=== PATIENT | male | born 1945 | race Caucasian/White ===

== ENCOUNTER 2017-04-01 16:13 | Inpatient (IN) ==
[2017-04-01] MEDS ORDERED: Ipratropium/Albuterol Neb 3 ML IH PRN (22:51)
[2017-04-01] MEDS ORDERED: Naloxone 0.4 MG/ML INJ IVP PRN (22:51)
--- NOTE | 2017-04-01 22:56 | Internal Med History&Physical ---
Date of Encounter: 04/01/17 Time of Encounter: 23:02 Assessment and Plan (1) COPD (chronic obstructive pulmonary disease) Current visit: No Status: Acute Duonebs, IV steroids prn cpap as necessary pulse ox close monitoring Qualifiers: COPD type: COPD with acute exacerbation Qualified Code(s): J44.1 - Chronic obstructive pulmonary disease with (acute) exacerbation (2) Left lower lobe pneumonia Current visit: No Status: Acute Add levaquin IV send pneumococcal serologies IVF Qualifiers: Pneumonia type: due to unspecified organism Qualified Code(s): J18.1 - Lobar pneumonia, unspecified organism (3) Renal insufficiency Current visit: No Status: Acute trend Cr (4) Sleep apnea Current visit: No Status: Chronic CPAP qHS Qualifiers: Sleep apnea type: central sleep apnea associated with underlying condition Qualified Code(s): G47.37 - Central sleep apnea in conditions classified elsewhere (5) Elevated troponin Current visit: Yes Status: Acute trend trop , mildly elevated in the ED 0.02 Internal Medicine - H&P: HPI History of present illness: Mr. Andrews is a 71 year old male with hx of COPD, current 1/2 PPD smoker who presents with 1 week hx of progressive SOB, RIOS. Found to be hypoxic in the ED. He presented with 1 week hx of worsening SOB. At baseline, he uses CPAP and 2 L oxygen in the evening/at rest. Otherwise is ambulatory off oxygen. Developed progressive SOB and RIOS up to 1 block distance. Associated with some mild cough that is intermittently productive of white sputum. Subjective fever/ chills also of 1 week. Symptoms did not improve with time. He denies any chest pain or equivalent symptoms. Admits to continuous smoking 1/2 PPD EKG personally reviewed with rate 86, RBBB. No prior EKG to compare to XR/XR chest 1V portable IMPRESSION: Left basilar infiltrate compatible with pneumonia Past Med Surg Social Fam HX - Past Medical History Medical history: aortic aneurysm, arthritis, asthma, cancer, COPD, coronary artery disease, GERD, hyperlipidemia, hypertension, malignancy, myocardial infarction, renal disease, TIA, other Psychiatric history: anxiety, depression - Past Surgical History Surgical History: orthopedic, other, other - Social History Smoking Status: Current every day smoker Smokeless Tobacco Status: No Alcohol use: none Drug use: none - Family History Father Adopted: Yes Family Member Ethnicity: Non- Living Status: Hx Family Cardiac Disorders: Yes (self, brother,mother) Hx Family Respiratory Disorders: Yes (self, father) Hx Family Cancer: Yes (self,father,brother) Hx Family GI Disorders: Yes (self) Hx Family Endocrine Disorder: No Hx Family Neuromuscular Disorders: No Hx Family Neurologic Disorders: Yes (self,mother) Hx Family HEENT Disorders: No Hx Family Autoimmune Disorders: No Internal Medicine - H&P: Meds Albuterol Sulfate [Albuterol Inhaler] 2 puff IH Q4HR PRN 01/13/15 [History] Esomeprazole Magnesium [Nexium] 40 mg PO DAILY 01/13/15 [History] Hydrocodone/Acetaminophen [[place] 7.5-325 Tablet] 1 tab PO TID PRN 01/13/15 [ History] Simvastatin [Zocor] 40 mg PO HS 01/13/15 [History] Tiotropium [Spiriva] 18 mcg IH DAILY 01/13/15 [History] Carvedilol [Coreg] 6.25 mg PO BIDWM 05/28/15 [History] Fluticasone/Salmeterol [Advair 250-50 Diskus] 2 puff IN DAILY 05/28/15 [History] BuPROPion SR (12 HR) [Wellbutrin SR] 100 mg PO BID 07/29/15 [History] Citalopram Hydrobromide [Celexa] 40 mg PO DAILY 07/29/15 [History] Tamsulosin [Flomax] 0.4 mg PO DAILY 07/29/15 [History] Tizanidine HCl [Zanaflex] 4 mg PO DAILY 07/29/15 [History] Cetirizine HCl [All Day Allergy] 10 mg PO DAILY 02/17/16 [History] Guaifenesin [Mucinex] 600 mg PO BID 02/17/16 [History] Ipratropium/Albuterol Neb [Duoneb] 3 ml IH Q6HR 02/17/16 [History] Losartan/Hydrochlorothiazide [Hyzaar 100-12.5 Tablet] 1 each PO DAILY 02/17/16 [ History] Montelukast [Singulair] 10 mg PO DAILY 02/17/16 [History] Tizanidine HCl 2 mg PO HS 02/17/16 [History] Gabapentin [Neurontin] 300 mg PO QID 10/11/16 [History] PredniSONE [Deltasone] 40 mg PO DAILY #8 tablet 02/14/17 [Rx] 3 Allergy/AdvReac Type Severity Reaction Status Date / Time morphine Allergy Anaphylaxis Verified 02/14/17 16:44 All Systems PM: A 10-system review of systems was performed and is negative for pertinent findings except as documented above in the HPI. Review of systems: ROS 14 point review of systems reviewed as best as possible given presentation. Pertinent positive or negative as per HPI or otherwise reviewed as negative - Constitutional Vitals: Temp Pulse Resp BP Pulse Ox 97.8 F 69 20 108/73 100 04/01/17 21:00 04/01/17 21:00 04/01/17 21:00 04/01/17 21:00 04/01/17 21:00 Exam: General - AAO x 3 Psych - Appropriate affect/speech. No agitation Eyes - KOMAL. Eye lids intact. No scleral icterus Neuro - No gross peripheral or central neuro deficits on inspection Heart - Sinus. RRR. S1 and S2 present. No added HS/murmurs appreciated. No elevated JVD appreciated. Lung - Decreased air entry b/l, bibasal crackles, right upper zone wheezes appreciated GI - Soft, non-tender. No hepatosplenomegaly/ascites. BS+ - No CVA/suprapubic tenderness or palpable bladder distension
[2017-04-01] MEDS: 0.9 % Sodium Chloride 1,000 ML IVC SCH (23:15)
[2017-04-01] MEDS: MethylPREDNISolone 40 MG/ML VIAL IVP SCH (23:16)
[2017-04-01] MEDS: Levofloxacin 500 MG/100 ML 500 MG/100 ML BAG IVPB SCH (23:16)
[2017-04-02] MEDS: Ipratropium/Albuterol Neb 3 ML IH SCH ×4 (05:13→23:39)
[2017-04-02 05:20] LABS: Hematocrit 33.3 % (37.5-50.1); Hemoglobin 10.7 g/dL (12.9-16.9); Immature Granulocytes % 0.9 % (0-4); Lymphocytes # 0.3 K/mcL (0.6-4.6); Lymphocytes % 4.8 %; Mean Corpuscular HGB Conc 32.1 g/dL (31.6-35.5); Mean Corpuscular Hemoglobin 30.7 pg (28.0-33.3); Mean Corpuscular Volume 95.4 fL (83.0-100.0); Mean Platelet Volume 10.3 fL (9.4-12.4); Monocytes # 0.3 K/mcL (0.0-1.3); Monocytes % 3.7 %; Platelet Count 146 K/mcL (140-400); Red Blood Count 3.49 M/mcL (4.19-5.50); Red Cell Distribution Width 13.8 % (11.5-14.5); Segmented Neutrophils % 90.6 %
[2017-04-02 05:35] LABS: BUN/Creatinine Ratio 25 (6-26); Blood Urea Nitrogen 27 mg/dL (8-23); Calcium 8.5 mg/dL (8.6-10.3); Carbon Dioxide 28 mEq/L (23-29); Chloride 106 mEq/L (98-107); Glucose 169 mg/dL (70-105); Magnesium 1.5 mg/dL (1.6-2.6); Osmolality,Calculated 297 (280-300); Potassium 3.8 mEq/L (3.5-5.1); Sodium 139 mEq/L (136-145); eGFR For African Americans > 60 (> 60); eGFR For Non-African Americans > 60 (> 60)
[2017-04-02] MEDS: *HR* Enoxaparin 30 MG/0.3 ML SYRINGE SQ SCH (06:05)
[2017-04-02] MEDS: MethylPREDNISolone 40 MG/ML VIAL IVP SCH ×2 (06:05→18:02)
[2017-04-02] MEDS: BuPROPion SR (12 HR) 100 MG TABLET PO SCH ×2 (07:43→20:30)
[2017-04-02] MEDS: Gabapentin 300 MG CAPSULE PO SCH ×4 (07:44→20:30)
[2017-04-02] MEDS: Nicotine 14 MG PATCH.TD24 TD SCH (07:44)
[2017-04-02] MEDS: tiZANidine 4 MG TABLET PO SCH ×2 (07:45→20:27)
[2017-04-02] MEDS: Loratadine 10 MG TABLET PO SCH (07:48)
[2017-04-02] MEDS ORDERED: Losartan/HCTZ 50-12.5 TABLET PO SCH (09:00)
[2017-04-02] MEDS: 0.9 % Sodium Chloride 1,000 ML IVC SCH (09:41)
[2017-04-02] MEDS: Budesonide/Formoterol 80/4.5 MDI IH SCH (11:04)
[2017-04-02] MEDS: Tiotropium 18 MCG inhalation IH SCH (11:06)
--- NOTE | 2017-04-02 11:44 | Internal Med Progress Note ---
Date of Encounter: 04/02/17 Time of Encounter: 11:41 - Assessment and plan (1) Acute and chronic respiratory failure with hypoxia Current Visit: Yes Status: Acute Assessment and plan: Triggered by Pneumonia cont IV steroids + Duoneb + empirical abx will try to wean him off the O2 as he tolerated he does use 2 lit o2 at QHS d/c IVF Will sent for resp viral panel His influenza A & B are negative (2) COPD exacerbation Current Visit: Yes Status: Acute (3) Pneumonia Current Visit: No Status: Acute Assessment and plan: reviewed CXR showed LLL PNA mostly bacterial cont empirical abx Levaquin Qualifiers: Pneumonia type: due to unspecified organism Laterality: bilateral Lung location: lower lobe of lung Qualified Code(s): J18.9 - Pneumonia, unspecified organism (4) Tobacco use Current Visit: No Status: Chronic Assessment and plan: counseled to quit on nicotine patch (5) Hypertension Current Visit: No Status: Chronic Assessment and plan: stable with current regimen Qualifiers: Hypertension type: essential hypertension Qualified Code(s): I10 - Essential (primary) hypertension (6) Sleep apnea Current Visit: No Status: Chronic Assessment and plan: he is going to use his own CPAP from home Qualifiers: Sleep apnea type: central sleep apnea associated with underlying condition Qualified Code(s): G47.37 - Central sleep apnea in conditions classified elsewhere (7) Renal insufficiency Current Visit: No Status: Acute Assessment and plan: due to dehydration Improved - Subjective Interval history: Mr. Andrews is a 71 year old male with hx of COPD, current 1/2 PPD smoker who presents with 1 week hx of progressive SOB, RIOS. Found to be hypoxic in the ED. He presented with 1 week hx of worsening SOB. At baseline, he uses CPAP and 2 L oxygen in the evening/at rest. Developed progressive SOB and RIOS up to 1 block distance. Associated with some mild cough that is intermittently productive of white sputum. Subjective fever/chills also of 1 week. He stated he is feeling little better this morning. Still has moderate SOB and RIOS. Still on 2 lit O2 - Constitutional Vitals: Temp Pulse Resp BP Pulse Ox 97.2 F L 55 17 132/75 94 04/02/17 08:23 04/02/17 08:23 04/02/17 11:04 04/02/17 08:23 04/02/17 11:04 General appearance: Present: A&O X 3, no acute distress, answers questions appropriately - Head Head exam: Present: atraumatic, normal inspection - Respiratory Respiratory exam: Present: decreased breath sounds, rhonchi (++), wheezes ( moderate to severe). Absent: rales, respiratory distress - Cardiovascular Cardiovascular exam: Present: RRR, +S1, +S2. Absent: tachycardia - GI/Abdominal GI/Abdominal exam: Present: normal bowel sounds, soft. Absent: rebound, rigid, tenderness - Extremities Exam Extremities exam: Absent: calf tenderness, pedal edema, tenderness - Back Exam Back exam: Absent: CVA tenderness (L), CVA tenderness (R) - Neurological Exam Neurological exam: Present: alert, oriented X3 Internal Medicine: Result - Labs CBC & Chem 7: 04/02/17 05:10 04/02/17 05:10 Labs: Short CBC 04/02/17 Range/Units 05:10 WBC 6.7 (4.3-11.1) K/mcL Hgb 10.7 L D (12.9-16.9) g/dL Hct 33.3 L (37.5-50.1) % Plt Count 146 (140-400) K/mcL Neutrophils # 6.0 (1.6-8.9) K/mcL BMP 04/02/17 05:10 Sodium 139 Potassium 3.8 Chloride 106 Carbon Dioxide 28 BUN 27 H Creatinine 1.07 Glucose 169 H Calcium 8.5 L Cardiac Enzymes 04/01/17 04/02/17 Range/Units 23:12 05:10 Troponin I < 0.03 < 0.03 (< 0.04) ng/mL Consult Discharge Plan - Plan Referrals: Naresh Trotter MD [Primary Care Provider] -
[2017-04-02 13:56] LABS: Adenovirus Not Detected (Not Detect); Bordetella Pertussis Not Detected (Not Detect); Chlamydophila pneumoniae Not Detected (Not Detect); Coronavirus 229E Not Detected (Not Detect); Coronavirus HKU1 Not Detected (Not Detect); Coronavirus NL63 Not Detected (Not Detect); Coronavirus OC43 Not Detected (Not Detect); Human Metapneumovirus Not Detected (Not Detect); Human Rhinovirus/Enterovirus Not Detected (Not Detect); Influenza A Subtype 2009 H1 Not Detected (Not Detect); Influenza A Untypeable Not Detected (Not Detect); Influenza B Not Detected (Not Detect); Mycoplasma pneumoniae Not Detected (Not Detect); Parainfluenza Virus 1 Not Detected (Not Detect); Parainfluenza Virus 2 Not Detected (Not Detect); Parainfluenza Virus 3 Not Detected (Not Detect); Parainfluenza Virus 4 Not Detected (Not Detect); Respiratory Syncytial Virus Not Detected (Not Detect)
[2017-04-03] MEDS: Levofloxacin 500 MG/100 ML 500 MG/100 ML BAG IVPB SCH (01:53)
[2017-04-03] MEDS: MethylPREDNISolone 40 MG/ML VIAL IVP SCH ×4 (01:53→21:40)
[2017-04-03 04:36] LABS: Basophils % 0.1 %; Hematocrit 31.4 % (37.5-50.1); Hemoglobin 10.3 g/dL (12.9-16.9); Immature Granulocytes % 1.1 % (0-4); Lymphocytes # 0.5 K/mcL (0.6-4.6); Lymphocytes % 4.4 %; Mean Corpuscular HGB Conc 32.8 g/dL (31.6-35.5); Mean Corpuscular Volume 94.6 fL (83.0-100.0); Mean Platelet Volume 10.6 fL (9.4-12.4); Monocytes # 0.5 K/mcL (0.0-1.3); Monocytes % 4.2 %; Neutrophils # 10.1 K/mcL (1.6-8.9); Platelet Count 190 K/mcL (140-400); Red Blood Count 3.32 M/mcL (4.19-5.50); Red Cell Distribution Width 13.8 % (11.5-14.5); Segmented Neutrophils % 90.2 %
[2017-04-03] MEDS: *HR* Enoxaparin 30 MG/0.3 ML SYRINGE SQ SCH (04:50)
[2017-04-03 04:52] LABS: BUN/Creatinine Ratio 32 (6-26); Blood Urea Nitrogen 30 mg/dL (8-23); Calcium 8.7 mg/dL (8.6-10.3); Carbon Dioxide 27 mEq/L (23-29); Chloride 107 mEq/L (98-107); Glucose 142 mg/dL (70-105); Osmolality,Calculated 299 (280-300); Potassium 3.5 mEq/L (3.5-5.1); Sodium 140 mEq/L (136-145); eGFR For African Americans > 60 (> 60); eGFR For Non-African Americans > 60 (> 60)
[2017-04-03] MEDS: Ipratropium/Albuterol Neb 3 ML IH SCH ×4 (05:11→22:04)
[2017-04-03] MEDS: Nicotine 14 MG PATCH.TD24 TD SCH (07:48)
[2017-04-03] MEDS: BuPROPion SR (12 HR) 100 MG TABLET PO SCH ×2 (07:49→21:48)
[2017-04-03] MEDS: Loratadine 10 MG TABLET PO SCH (07:49)
[2017-04-03] MEDS: tiZANidine 4 MG TABLET PO SCH ×2 (07:49→21:47)
[2017-04-03] MEDS: Gabapentin 300 MG CAPSULE PO SCH ×4 (07:49→21:48)
[2017-04-03] MEDS: Tiotropium 18 MCG inhalation IH SCH (11:04)
[2017-04-03] MEDS: Budesonide/Formoterol 80/4.5 MDI IH SCH (11:05)
--- NOTE | 2017-04-03 17:49 | Internal Med Progress Note ---
Date of Encounter: 04/03/17 Time of Encounter: 17:00 - Assessment and plan (1) Acute and chronic respiratory failure with hypoxia Current Visit: Yes Status: Acute Assessment and plan: Triggered by Pneumonia cont tapering IV steroids + Duoneb + empirical abx will try to wean him off the O2 as he tolerated he does use 2 lit o2 at QHS Reviewed resp viral panel - negative His influenza A & B are negative (2) COPD exacerbation Current Visit: Yes Status: Acute Assessment and plan: improving start tapering steroids (3) Pneumonia Current Visit: No Status: Acute Assessment and plan: reviewed CXR showed LLL PNA mostly bacterial cont empirical abx Levaquin Qualifiers: Pneumonia type: due to unspecified organism Laterality: bilateral Lung location: lower lobe of lung Qualified Code(s): J18.9 - Pneumonia, unspecified organism (4) Tobacco use Current Visit: No Status: Chronic Assessment and plan: counseled to quit on nicotine patch (5) Hypertension Current Visit: No Status: Chronic Assessment and plan: stable with current regimen Qualifiers: Hypertension type: essential hypertension Qualified Code(s): I10 - Essential (primary) hypertension (6) Sleep apnea Current Visit: No Status: Chronic Assessment and plan: he is going to use his own CPAP from home Qualifiers: Sleep apnea type: central sleep apnea associated with underlying condition Qualified Code(s): G47.37 - Central sleep apnea in conditions classified elsewhere (7) Renal insufficiency Current Visit: No Status: Acute Assessment and plan: due to dehydration Improved - Subjective Interval history: Mr. Andrews is a 71 year old male with hx of COPD, current 1/2 PPD smoker who presents with 1 week hx of progressive SOB, RIOS. Found to be hypoxic in the ED. He presented with 1 week hx of worsening SOB. At baseline, he uses CPAP and 2 L oxygen in the evening/at rest. Developed progressive SOB and RIOS up to 1 block distance. Associated with some mild cough that is intermittently productive of white sputum. Subjective fever/chills also of 1 week. He stated he is feeling much better today. Still has moderate RIOS. Required Oxygen with ambulation - Constitutional Vitals: Temp Pulse Resp BP Pulse Ox 98.1 F 73 18 132/76 95 04/03/17 16:00 04/03/17 16:00 04/03/17 16:17 04/03/17 16:00 04/03/17 16:17 General appearance: Present: A&O X 3, no acute distress, answers questions appropriately - Head Head exam: Present: atraumatic, normal inspection - Neck Neck exam general surgery: Present: supple - Respiratory Respiratory exam: Present: decreased breath sounds, wheezes (Moderate). Absent : rales, respiratory distress, rhonchi - Cardiovascular Cardiovascular exam: Present: RRR, +S1, +S2. Absent: tachycardia - GI/Abdominal GI/Abdominal exam: Present: normal bowel sounds, soft. Absent: rebound, rigid, tenderness - Extremities Exam Extremities exam: Absent: calf tenderness, pedal edema, tenderness - Back Exam Back exam: Absent: CVA tenderness (L), CVA tenderness (R) - Neurological Exam Neurological exam: Present: alert, oriented X3 - Psychiatric Psychiatric exam: Present: normal affect, normal mood Internal Medicine: Result - Labs CBC & Chem 7: 04/03/17 03:48 04/03/17 03:48 Labs: Short CBC 04/03/17 Range/Units 03:48 WBC 11.2 H D (4.3-11.1) K/mcL Hgb 10.3 L (12.9-16.9) g/dL Hct 31.4 L (37.5-50.1) % Plt Count 190 (140-400) K/mcL Neutrophils # 10.1 H (1.6-8.9) K/mcL BMP 04/03/17 03:48 Sodium 140 Potassium 3.5 Chloride 107 Carbon Dioxide 27 BUN 30 H Creatinine 0.95 Glucose 142 H Calcium 8.7 Consult Discharge Plan - Plan Referrals: Naresh Trotter MD [Primary Care Provider] -
[2017-04-04] MEDS: Levofloxacin 500 MG/100 ML 500 MG/100 ML BAG IVPB SCH (00:52)
[2017-04-04] MEDS: Ipratropium/Albuterol Neb 3 ML IH SCH ×2 (05:28→11:08)
[2017-04-04] MEDS: MethylPREDNISolone 40 MG/ML VIAL IVP SCH (06:07)
[2017-04-04] MEDS: *HR* Enoxaparin 30 MG/0.3 ML SYRINGE SQ SCH (06:07)
[2017-04-04 09:23] VITALS: BP 129/70
[2017-04-04] MEDS: Nicotine 14 MG PATCH.TD24 TD SCH (10:58)
[2017-04-04] MEDS: Gabapentin 300 MG CAPSULE PO SCH (10:58)
[2017-04-04] MEDS: BuPROPion SR (12 HR) 100 MG TABLET PO SCH (10:58)
[2017-04-04] MEDS: tiZANidine 4 MG TABLET PO SCH (10:58)
[2017-04-04] MEDS: Loratadine 10 MG TABLET PO SCH (10:58)
[2017-04-04] MEDS: Tiotropium 18 MCG inhalation IH SCH (11:03)
[2017-04-04] MEDS: Budesonide/Formoterol 80/4.5 MDI IH SCH (11:07)
--- NOTE | 2017-04-04 12:47 | Discharge Summary ---
Date of Encounter: 04/04/17 Time of Encounter: 12:45 - Discharge Diagnosis (1) Acute and chronic respiratory failure with hypoxia Priority: Primary Status: Acute (2) COPD exacerbation Priority: Primary Status: Acute (3) Pneumonia Priority: Primary Status: Acute Qualifiers: Pneumonia type: due to unspecified organism Laterality: bilateral Lung location: lower lobe of lung Qualified Code(s): J18.9 - Pneumonia, unspecified organism (4) Tobacco use Priority: Secondary Status: Chronic (5) Hypertension Priority: Secondary Status: Chronic Qualifiers: Hypertension type: essential hypertension Qualified Code(s): I10 - Essential (primary) hypertension (6) Sleep apnea Priority: Secondary Status: Chronic Qualifiers: Sleep apnea type: central sleep apnea associated with underlying condition Qualified Code(s): G47.37 - Central sleep apnea in conditions classified elsewhere (7) Renal insufficiency Priority: Secondary Status: Acute - Discharge Medications Prescriptions: Levofloxacin [Levaquin] 500 mg PO DAILY #4 tablet Nicotine Patch [Nicoderm] 14 mg TD DAILY #30 patch.td24 predniSONE [PredniSONE] 40 mg PO DAILY #10 tablet Home Medications: Albuterol Sulfate [Albuterol Inhaler] 2 puff IH Q4HR PRN 01/13/15 [History] Esomeprazole Magnesium [Nexium] 40 mg PO DAILY 01/13/15 [History] Hydrocodone/Acetaminophen [[place] 7.5-325 Tablet] 1 tab PO TID PRN 01/13/15 [ History] Simvastatin [Zocor] 40 mg PO HS 01/13/15 [History] Tiotropium [Spiriva] 18 mcg IH DAILY 01/13/15 [History] Fluticasone/Salmeterol [Advair 250-50 Diskus] 2 puff IN DAILY 05/28/15 [History] BuPROPion SR (12 HR) [Wellbutrin SR] 100 mg PO BID 07/29/15 [History] Citalopram Hydrobromide [Celexa] 20 mg PO DAILY 07/29/15 [History] Tamsulosin [Flomax] 0.4 mg PO DAILY 07/29/15 [History] Tizanidine HCl [Zanaflex] 4 mg PO DAILY 07/29/15 [History] Cetirizine HCl [All Day Allergy] 10 mg PO DAILY 02/17/16 [History] Guaifenesin [Mucinex] 600 mg PO BID 02/17/16 [History] Ipratropium/Albuterol Neb [Duoneb] 3 ml IH Q6HR 02/17/16 [History] Losartan/Hydrochlorothiazide [Hyzaar 100-12.5 Tablet] 1 tab PO DAILY 02/17/16 [ History] Tizanidine HCl 2 mg PO HS 02/17/16 [History] Gabapentin [Neurontin] 300 mg PO QID 10/11/16 [History] Clopidogrel [Plavix] 75 mg PO DAILY 04/02/17 [History] Carvedilol [Coreg] 6.25 mg PO BIDWM tablet 04/04/17 [Rx] Levofloxacin [Levaquin] 500 mg PO DAILY #4 tablet 04/04/17 [Rx] Nicotine Patch [Nicoderm] 14 mg TD DAILY #30 patch.td24 04/04/17 [Rx] predniSONE [PredniSONE] 40 mg PO DAILY #10 tablet 04/04/17 [Rx] Allergies/Adverse Reactions: 3 Allergy/AdvReac Type Severity Reaction Status Date / Time morphine Allergy Anaphylaxis Verified 02/14/17 16:44 Date of admission: 04/02/17 01:33 Primary care physician: Naresh Trotter MD - Patient Status Disposition: Home, Self-Care Condition: Good Overall status at discharge: patient is back to baseline - Discharge Instructions Follow Up With: Naresh Trotter MD [Primary Care Provider] - - Diet and Activity Activity: increase activity as tolerated, wear oxygen at night Diet: low salt diet Hospital course: Mr. Andrews is a 71 year old male with hx of COPD, current 1/2 PPD smoker who presents with 1 week hx of progressive SOB, RIOS. Found to be hypoxic in the ED. He presented with 1 week hx of worsening SOB. At baseline, he uses CPAP and 2 L oxygen in the evening/at rest. Developed progressive SOB and RIOS up to 1 block distance. Associated with some mild cough that is intermittently productive of white sputum. Subjective fever/chills also of 1 week. He was admitted in the hospital and started him on empirical abx Levaquin and IV Steroids. His symptoms started improving slowly. He is off the Oxygen at rest now and breathing comfortably on RA. He feels like he is back to baseline and wants to go home. His Resp panel came back as negative.Counseled him to quit smoking. - Time Spent with Patient Total time spent providing and/or coordinating discharge services: - Constitutional Vitals: Temp Pulse Resp BP Pulse Ox 97.3 F L 64 16 129/70 94 04/04/17 08:30 04/04/17 08:30 04/04/17 11:10 04/04/17 08:30 04/04/17 11:12 General appearance: Present: A&O X 3, no acute distress, answers questions appropriately - Head Head exam: Present: atraumatic, normal inspection - Respiratory Respiratory exam: Present: decreased breath sounds, wheezes (mild). Absent: respiratory distress, rhonchi - Cardiovascular Cardiovascular exam: Present: RRR, +S1, +S2. Absent: tachycardia - GI/Abdominal GI/Abdominal exam: Present: normal bowel sounds, soft. Absent: rebound, rigid, tenderness - Extremities Exam Extremities exam: Absent: calf tenderness, pedal edema, tenderness - Back Exam Back exam: Absent: CVA tenderness (L), CVA tenderness (R) - Psychiatric Psychiatric exam: Present: normal affect, normal mood
== END 2017-04-04 14:53 | disposition home or self-care (01) | DRG 190 ==
LOC: 2NENU
PROVIDERS: ADMIT Internal Medicine Nephrology; ATTEND Family Medicine

== ENCOUNTER 2018-06-20 18:53 | Inpatient (IN) ==
[2018-06-20] MEDS ORDERED: *HR* Heparin 5,000 UNIT/ML VIAL IVP ONE (21:49)
[2018-06-20] MEDS ORDERED: Isovue-370 500 ML BOTTLE IVP ONE (21:49)
[2018-06-20] MEDS ORDERED: Acetaminophen 325 MG TABLET PO PRN (21:49)
[2018-06-20] MEDS ORDERED: Naloxone 0.4 MG/ML INJ IVP PRN (21:49)
[2018-06-20] MEDS ORDERED: Ondansetron ODT 4 MG TAB.RAPDIS SL PRN (21:49)
[2018-06-20] MEDS ORDERED: *HR* Heparin 5,000 UNIT/ML VIAL IVP PRN ×2 (21:49)
[2018-06-20] MEDS ORDERED: Albuterol 2.5 MG/3 ML NEBULIZER IH PRN (21:49)
[2018-06-20] MEDS ORDERED: *HR* HYDROcodone/Acet 7.5/325 mg TABLET PO PRN (21:55)
[2018-06-20] MEDS ORDERED: Heparin 25,000 UNIT/250 ML D5W 25,000 UNIT/250 ML IV.SOLN IVC SCH (22:00)
[2018-06-20] MEDS: 0.9 % Sodium Chloride w KCl 20 MEQ/1,000 ML MLS IVC SCH (22:33)
[2018-06-20 22:43] LABS: Hematocrit 40.9 % (37.5-50.1); Hemoglobin 12.6 g/dL (12.9-16.9); Mean Corpuscular HGB Conc 30.8 g/dL (31.6-35.5); Mean Corpuscular Hemoglobin 29.4 pg (28.0-33.3); Mean Corpuscular Volume 95.6 fL (83.0-100.0); Mean Platelet Volume 9.7 fL (9.4-12.4); Platelet Count 212 K/mcL (140-400); Red Blood Count 4.28 M/mcL (4.19-5.50); Red Cell Distribution Width 13.4 % (11.5-14.5)
[2018-06-20 22:52] LABS: Prothrombin Time 10.7 Seconds (9.4-12.1)
[2018-06-20 22:54] LABS: Activated Partial Thrombo Time 26.5 Seconds (26.0-36.0)
--- NOTE | 2018-06-20 23:00 | Internal Med History&Physical ---
Date of Encounter: 06/20/18 Time of Encounter: 21:30 Internal Medicine - H&P: HPI Chief complaint: chest pain Admitted From: Hospital to Hospital Transfer Plans for Post Hospital Care: Home History of present illness: Mr. Andrews is a 73 year old male who presents in transfer from [facility] ER for concerns of chest pain. Workup there was negative except for an elevated d-dimer. He had a CTA of the chest, which was a suboptimal study and could only rule out central PE. He was therefore transferred to [facility] for ongoing workup and treatment. Upon my assessment of the patient, he states he had sudden onset of sharp, severe, mid-several chest pain radiating to both arms. He had no diaphoresis, but he did have shortness of breath. He took sublingual nitroglycerin at home without relief. He therefore called EMS and was taken to ER where he received more sublingual nitroglycerin, again with no relief. He was given GI cocktail with no relief as well. Eventually, the pain subsided on its own. Initial workup including EKG and troponin were negative. However, d-dimer was markedly elevated. As such, he underwent CT scan of the chest which revealed no central PE. However, this is a suboptimal and poor quality study and thus a peripheral PE could be missed. He has never had DVT or PE before. However, he informs he that he had partial nephrectomy several years ago secondary to kidney cancer. Given his underlying cancer diagnosis, he is at high risk for thromboembolism, especially if this is a renal cell carcinoma. As such, I am going to start him empirically on heparin drip and proceed with a repeat CTA of the chest tomorrow to rule out PE. Patient denies any GI bleeding history or any bleeding history whatsoever. He voiced understanding to my concerns and agrees with the plan. Past Med Surg Social Fam HX - Past Medical History Attestation: Yes The following information was validated with the patient. Source: patient, old records reviewed Medical history: aortic aneurysm, arthritis, asthma, cancer, COPD, coronary artery disease, GERD, hyperlipidemia, hypertension, malignancy, myocardial infarction, renal disease Additional medical history: 4 heart stents, cancer kidney right has had treatment Psychiatric history: anxiety, depression - Past Surgical History Surgical History: angioplasty/stent, orthopedic, other, other Additional surgical history: kidney surgery - Social History Smoking Status: Current some day smoker Packs per day: 0.10 Smokeless Tobacco Status: No Alcohol use: none Drug use: none Current living situation: Home Activity Level: Independent ambulation Recent Out of Country Travel Within the Last 8 Weeks: No - Family History Mother Family Member Ethnicity: Non- Living Status: Hx Family Cardiac Disorders: Yes Father Adopted: Yes Family Member Ethnicity: Non- Living Status: Hx Family Cardiac Disorders: Yes (self, brother,mother) Hx Family Respiratory Disorders: Yes (self, father) Hx Family Cancer: Yes (self,father,brother) Hx Family GI Disorders: Yes (self) Hx Family Endocrine Disorder: No Hx Family Neuromuscular Disorders: No Hx Family Neurologic Disorders: Yes (self,mother) Hx Family HEENT Disorders: No Hx Family Autoimmune Disorders: No Internal Medicine - H&P: Meds BuPROPion SR (12 HR) [Wellbutrin SR] 100 mg PO BID 07/29/15 [History] Citalopram Hydrobromide [Celexa] 20 mg PO DAILY 07/29/15 [History] Tamsulosin [Flomax] 0.4 mg PO DAILY 07/29/15 [History] Tizanidine HCl [Zanaflex] 4 mg PO BID 07/29/15 [History] Ipratropium/Albuterol Neb [Duoneb] 3 ml IH Q6HR 02/17/16 [History] Losartan/Hydrochlorothiazide [Hyzaar 100-12.5 Tablet] 0.5 tab PO DAILY 02/17/16 [History] Gabapentin [Neurontin] 300 mg PO QID 10/11/16 [History] Carvedilol [Coreg] 6.25 mg PO BIDWM tablet 04/04/17 [Rx] HYDROcodone/Acet 7.5/325 mg [[place] 7.5-325 mg] 1 tab PO Q6H PRN 06/22/17 [History] Omeprazole [PriLOSEC] 40 mg PO DAILY 06/22/17 [History] Albuterol Sulfate [Albuterol Inhaler] 2 puff IH Q4H PRN 06/20/18 [History] Cetirizine HCl 10 mg PO DAILY 06/20/18 [History] Roflumilast [Daliresp] 500 mcg PO DAILY 06/20/18 [History] Simvastatin [Zocor] 40 mg PO HS 06/20/18 [History] Tiotropium Br/Olodaterol HCl [Stiolto Respimat Inhal [place]] 2 puff IH DAILY 06/20/18 [History] predniSONE [PredniSONE] 10 mg PO AD 06/20/18 [History] Allergy/AdvReac Type Severity Reaction Status Date / Time morphine Allergy Anaphylaxis Verified 06/20/18 22:19 - Constitutional Constitutional: no chills, no fever(s), no night sweats - EENT Eyes: no blurry vision, no change in vision Ears: no ear pain, no tinnitus Nose, mouth and throat: no nasal congestion, no sinus pressure, no sore throat - Cardiovascular Cardiovascular ROS IM: chest pain, dyspnea (chronic -- unchanged), no dyspnea on exertion, no lightheadedness, no palpitations, no paroxysmal nocturnal dyspnea, no syncope - Respiratory Respiratory: cough (chronic), dyspnea (chronic), wheezing, pain with cough, no hemoptysis, no chest congestion, no excessive phlegm production, no change in phlegm color - Gastrointestinal Gastrointestinal: heartburn, no abdominal pain, no diarrhea, no hematemesis, no hematochezia, no melena, no vomiting - Genitourinary Genitourinary ROS male: no dysuria, no flank pain, no hematuria - Musculoskeletal Musculoskeletal ROS IM: no arthralgias, no back pain - Integumentary Integumentary IM: no rash, no jaundice - Neurological Neurological ROS: no disequilibrium, no dizziness, no focal weakness, no frequent falls, no headache(s) - Psychiatric Psychiatric: no anxiety, no depression - Endocrine Endocrine IM: no cold intolerance, no heat intolerance, no polydipsia, no polyphagia, no polyuria - Hematologic/Lymphatic Hematologic/Lymphatic: easy bruising - Allergic/Immunologic Allergic/Immunologic: wheezing, GI upset with certain foods - Constitutional Vitals: Temp Pulse Resp BP Pulse Ox 98.0 F 67 16 136/64 92 06/20/18 21:10 06/20/18 21:10 06/20/18 21:10 06/20/18 21:10 06/20/18 21:10 General appearance: Present: cooperative, A&O X 3, pleasant, no acute distress, answers questions appropriately Exam: no acute distress; no active chest pain - Head Head exam: Present: atraumatic, normal inspection - Eye Eye exam: Present: EOMI, PERRL. Absent: scleral icterus Pupils: Present: normal accommodation - ENT ENT exam: Present: mucous membranes dry, normal exam, normal oropharynx - Neck Neck exam general surgery: Present: full ROM, supple, trachea midline. Absent: lymphadenopathy, tenderness, nuchal rigidity, thyromegaly - Respiratory Respiratory exam: Present: rhonchi, wheezes (scant, scattered wheezes). Absent: accessory muscle use, chest wall tenderness, rales, respiratory distress - Cardiovascular Cardiovascular exam: Present: distant heart sounds, RRR, +S1, +S2. Absent: diastolic murmur, systolic murmur - GI/Abdominal GI/Abdominal exam: Present: normal bowel sounds, soft. Absent: guarding, hepatomegaly, mass, rebound, splenomegaly, tenderness - Extremities Exam Extremities exam: Present: full ROM, warm, radial pulses palpable and symmetrical. Absent: calf tenderness, joint swelling, pedal edema, tenderness - Back Exam Back exam: Present: normal inspection. Absent: CVA tenderness (L), CVA tenderness (R) - Neurological Exam Neurological exam: Present: alert, CN II-XII intact, oriented X3, no focal deficits, strengths equal and symetr throughout - Psychiatric Psychiatric exam: Present: normal affect, normal mood - Skin Skin exam: Present: intact, warm. 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 High suspicion for PE given pleuritic nature of CP, history of kidney cancer, and subsequent increased risk for VTE. 2. Will start heparin gtt empirically, repeat CTA chest tomorrow in order to avoid excessive IV dyeload, hydrate with IVF to protect kidneys. 3. Will trend troponins, order ECHO, and consult cardiology as well. 4. Patient currently remains chest pain free. 5. Will order BLE Dopplers to rule out DVT as well. (2) COPD (chronic obstructive pulmonary disease) Current Visit: Yes Status: Chronic Assessment and plan: 1. No active exacerbation. 2. Patient currently finishing up steroid taper. 3. Continue home meds as appropriate. 4. Will schedule Duonebs and order PRN albuterol aerosols. 5. Oxygen and CPAP per home settings. Qualifiers: COPD type: emphysema Emphysema type: panlobular Qualified Code(s): J43.1 - Panlobular emphysema (3) Coronary artery disease Current Visit: Yes Status: Chronic Assessment and plan: 1. Work-up and cardiology consult as above. 2. Patient remains chest pain free now. Qualifiers: Coronary Disease-Associated Artery/Lesion type: [place] artery [place] vs. transplanted heart: [place] heart Associated angina: with stable angina Qualified Code(s): I25.118 - Atherosclerotic heart disease of [place] coronary artery with other forms of angina pectoris (4) DVT prophylaxis Current Visit: Yes Status: Acute Assessment and plan: 1. Heparin drip as above. (5) Renal cancer Current Visit: No Status: Acute Qualifiers: Laterality: unspecified laterality Qualified Code(s): C64.9 - Malignant neoplasm of unspecified kidney, except renal pelvis - Time Spent With Patient Total time spent is greater than 50% in coordination of care (as documented) at patient's floor/unit and/or counseling patient:
[2018-06-21] MEDS: Ipratropium/Albuterol Neb 3 ML IH SCH ×5 (01:11→21:54)
[2018-06-21 04:57] LABS: Basophils # 0.1 K/mcL (0.0-0.2); Basophils % 0.5 %; Eosinophils # 0.1 K/mcL (0.0-0.6); Eosinophils % 1.5 %; Hematocrit 35.9 % (37.5-50.1); Hemoglobin 11.3 g/dL (12.9-16.9); Immature Granulocytes % 2.5 % (0-4); Lymphocytes # 1.9 K/mcL (0.6-4.6); Lymphocytes % 19.9 %; Mean Corpuscular HGB Conc 31.5 g/dL (31.6-35.5); Mean Corpuscular Hemoglobin 29.8 pg (28.0-33.3); Mean Corpuscular Volume 94.7 fL (83.0-100.0); Monocytes # 0.9 K/mcL (0.0-1.3); Monocytes % 9.6 %; Neutrophils # 6.4 K/mcL (1.6-8.9); Platelet Count 164 K/mcL (140-400); Red Blood Count 3.79 M/mcL (4.19-5.50); Red Cell Distribution Width 13.5 % (11.5-14.5)
[2018-06-21 05:18] LABS: Alanine Aminotransferase 9 Units/L (7-52); Albumin 3.3 g/dL (3.5-5.7); Albumin/Globulin Ratio 1.8 (1.1-2.2); Alkaline Phosphatase 61 Units/L (34-104); Aspartate Amino Transferase 17 Units/L (13-39); BUN/Creatinine Ratio 19 (6-26); Bilirubin,Total 0.3 mg/dL (0.3-1.0); Blood Urea Nitrogen 16 mg/dL (8-23); Calcium 8.6 mg/dL (8.6-10.3); Carbon Dioxide 28 mEq/L (23-29); Chloride 106 mEq/L (98-107); Globulin 1.8 g/dL (2.4-3.5); Glucose 93 mg/dL (70-105); Magnesium 1.8 mg/dL (1.6-2.6); Osmolality,Calculated 289 (280-300); Potassium 3.7 mEq/L (3.5-5.1); Sodium 139 mEq/L (136-145); Total Protein 5.1 g/dL (6.4-8.9); eGFR For Non-African Americans > 60 (> 60)
[2018-06-21 05:27] LABS: Troponin I 2.44 ng/mL (< 0.04)
[2018-06-21] MEDS ORDERED: predniSONE 20 MG TABLET PO SCH (09:00)
[2018-06-21] MEDS ORDERED: Tiotropium 18 MCG inhalation IH SCH (09:00)
--- NOTE | 2018-06-21 09:29 | Cardiology Consult Note ---
<Yariel Delong R - Last Filed: 06/21/18 09:17> Date of Encounter: 06/21/18 Time of Encounter: 09:17 Assessment and Plan (1) NSTEMI (non-ST elevated myocardial infarction) Current Visit: Yes Status: Acute Troponin negative, 1.42, 2.44. Presented with chest pain radiating to bilateral shoulder/arms. Hx of CAD s/p PCI in remote past ~10 years ago. On heparin gtt, ASA, Statin, BB. ECG unchanged from previous. TTE to evaluate structure and function. Recommend [facility]. R/B/A discussed. Pt agrees to proceed. (2) Personal history of renal cancer Current Visit: Yes Status: Acute Hx renal cancer s/p partial nephrectomy. Renal function stable. (3) Tobacco use Current Visit: No Status: Chronic Smoking cessation counseling given. (4) Coronary artery disease Current Visit: Yes Status: Chronic Hx CAD and PCI. ASA, Statin, BB. Qualifiers: Coronary Disease-Associated Artery/Lesion type: [place] artery [place] vs. transplanted heart: [place] heart Associated angina: with stable angina Qualified Code(s): I25.118 - Atherosclerotic heart disease of [place] coronary artery with other forms of angina pectoris Discussion w patient/family: The assessment and plan as outlined above was discussed with the patient and/or family members who expressed understanding and agreement. All questions were answered. Thank you for involving us in the care of your patient. Please call with any questions. I will discuss all the above with Dr. Pena and make changes as necessary. History of Present Illness Consult date: 06/21/18 Requesting physician: Evens Leon Consult reason: NSTEMI Chief complaint: chest pain History of present illness: Mr. Andrews is a 73 year old male with PMH of CAD s/p PCI, AAA, tobacco abuse, hx of renal cancer s/p partial nephrectomy who presents in transfer from [facility] for chest pain. Workup there was negative except for an elevated d-dimer. He had a CTA of the chest, which was a suboptimal study, but ruled out central PE. He was transferred to [facility] for workup and treatment. Pt reports yesterday he developed chest pain on exertion while walking back to his house, described as sharp with radiation to both shoulders and arms. Pain lasted ~2 hours. He took SL nitro without relief. Eventually, the pain subsided on its o wn. Initial troponin was negative, then 1.42, 2.44. Pain free currently. Prior CV testing: Nuclear stress test 06/23/17: Gated 71%. Medium sized, moderate intensity, fixed inferior and inferior septal defect possibly due to a prior infarct. Perfusion imaging was negative for ischemia. Past Med Surg Social Fam HX - Past Medical History Medical history: aortic aneurysm, arthritis, asthma, cancer, COPD, coronary artery disease, GERD, hyperlipidemia, hypertension, malignancy, myocardial infarction, renal disease Additional medical history: 4 heart stents, cancer kidney right has had treatment Psychiatric history: anxiety, depression - Past Surgical History Surgical History: angioplasty/stent, orthopedic, other, other Additional surgical history: kidney surgery - Social History Smoking Status: Current some day smoker Packs per day: 0.10 Smokeless Tobacco Status: No Alcohol use: none Drug use: none - Family History Mother Family Member Ethnicity: Non- Living Status: Hx Family Cardiac Disorders: Yes Father Adopted: Yes Family Member Ethnicity: Non- Living Status: Hx Family Cardiac Disorders: Yes (self, brother,mother) Hx Family Respiratory Disorders: Yes (self, father) Hx Family Cancer: Yes (self,father,brother) Hx Family GI Disorders: Yes (self) Hx Family Endocrine Disorder: No Hx Family Neuromuscular Disorders: No Hx Family Neurologic Disorders: Yes (self,mother) Hx Family HEENT Disorders: No Hx Family Autoimmune Disorders: No Medications and Allergies BuPROPion SR (12 HR) [Wellbutrin SR] 100 mg PO BID 07/29/15 [History] Citalopram Hydrobromide [Celexa] 20 mg PO DAILY 07/29/15 [History] Tamsulosin [Flomax] 0.4 mg PO DAILY 07/29/15 [History] Tizanidine HCl [Zanaflex] 4 mg PO BID 07/29/15 [History] Ipratropium/Albuterol Neb [Duoneb] 3 ml IH Q6HR 02/17/16 [History] Losartan/Hydrochlorothiazide [Hyzaar 100-12.5 Tablet] 0.5 tab PO DAILY 02/17/16 [History] Gabapentin [Neurontin] 300 mg PO QID 10/11/16 [History] Carvedilol [Coreg] 6.25 mg PO BIDWM tablet 04/04/17 [Rx] HYDROcodone/Acet 7.5/325 mg [[place] 7.5-325 mg] 1 tab PO Q6H PRN 06/22/17 [History] Omeprazole [PriLOSEC] 40 mg PO DAILY 06/22/17 [History] Albuterol Sulfate [Albuterol Inhaler] 2 puff IH Q4H PRN 06/20/18 [History] Cetirizine HCl 10 mg PO DAILY 06/20/18 [History] Roflumilast [Daliresp] 500 mcg PO DAILY 06/20/18 [History] Simvastatin [Zocor] 40 mg PO HS 06/20/18 [History] Tiotropium Br/Olodaterol HCl [Stiolto Respimat Inhal [place]] 2 puff IH DAILY 06/20/18 [History] predniSONE [PredniSONE] 10 mg PO AD 06/20/18 [History] Allergy/AdvReac Type Severity Reaction Status Date / Time morphine Allergy Anaphylaxis Verified 06/20/18 22:19 All Systems Review: The remainder of the systems were reviewed and are negative - Cardiovascular Cardiovascular: as per HPI, chest pain at rest, chest pain with exertion, radiating jaw, neck or arm pain - Respiratory Respiratory: cough Physical Examination Vital Signs, Last 4 Hours Temp Pulse Resp BP Pulse Ox 06/21/18 07:31 97.8 F 60 16 149/77 97 Vital Signs Temp Pulse Resp BP Pulse Ox 06/21/18 09:24 16 97 06/21/18 07:31 97.8 F 60 16 149/77 97 06/21/18 04:52 16 98 06/21/18 03:51 97.9 F 56 16 120/72 98 06/21/18 01:10 18 96 06/21/18 00:03 97.8 F 61 16 132/75 100 06/20/18 21:10 98.0 F 67 16 136/64 92 Intake and Output 06/20/18 06/21/18 06/21/18 23:59 07:59 15:59 Intake Total 76.2 / 76.2 Balance 76.2 / 76.2 Intake: IV Fluids 76.2 / 76.2 Heparin 25,000 UNIT/250 ML D5W 76.2 / 76.2 25,000 unit In 250 ml @ 14 UNIT /KG/HR 11.872 mls/hr IVC . Q21H4M DWIGHT Rx#:[id number] Other: Weight 84.8 kg 84.5 kg Patient Weight 06/21/18 23:59 Weight 84.5 kg General: Conversant, No Apparent Distress HEENT: Atraumatic, Normocephaly, Mucus Membranes Moist Neck: No JVD, Normal carotid pulses Cardiac: Reg Rate and Rhythm, Normal S1 and S2, No Murmur Lungs: Normal Breath Sounds, No Wheeze, Rales, Rhonchi Neuro: Alert and responsive, No focal deficits noted Abdomen: Soft, Non-Tender Skin: No rashes noted on visualized skin Musculoskeletal: No Chest Wall Tenderness Extremities: No Clubbing, No Cyanosis, No Edema, Normal Pulses Results 06/21/18 04:29 06/21/18 04:29 Lab Results 06/20/18 06/20/18 06/20/18 22:27 22:27 22:27 WBC 12.3 H Hgb 12.6 L Hct 40.9 Plt Count 212 INR 1.0 APTT 26.5 Sodium Potassium Chloride Carbon Dioxide BUN Creatinine Glucose Calcium Magnesium Total Bilirubin AST ALT Alkaline Phosphatase Troponin I 1.42 H* 06/21/18 06/21/18 04:29 04:29 WBC 9.6 Hgb 11.3 L Hct 35.9 L Plt Count 164 INR APTT Sodium 139 Potassium 3.7 Chloride 106 Carbon Dioxide 28 BUN 16 Creatinine 0.85 Glucose 93 Calcium 8.6 Magnesium 1.8 Total Bilirubin 0.3 AST 17 ALT 9 Alkaline Phosphatase 61 Troponin I 2.44 H* Short CBC 06/21/18 06/20/18 Range/Units 04:29 22:27 WBC 9.6 12.3 H (4.3-11.1) K/mcL Hgb 11.3 L 12.6 L (12.9-16.9) g/dL Hct 35.9 L 40.9 (37.5-50.1) % Plt Count 164 212 (140-400) K/mcL Neutrophils # 6.4 (1.6-8.9) K/mcL BMP 06/21/18 Range/Units 04:29 Sodium 139 (136-145) mEq/L Potassium 3.7 (3.5-5.1) mEq/L Chloride 106 (98-107) mEq/L Carbon Dioxide 28 (23-29) mEq/L BUN 16 (8-23) mg/dL Creatinine 0.85 (0.70-1.30) mg/dL Glucose 93 (70-105) mg/dL Calcium 8.6 (8.6-10.3) mg/dL Cardiac Enzymes 06/21/18 06/20/18 Range/Units 04:29 22:27 Troponin I 2.44 H* 1.42 H* (< 0.04) ng/mL Liver Function 06/21/18 Range/Units 04:29 Total Bilirubin 0.3 (0.3-1.0) mg/dL AST 17 (13-39) Units/L ALT 9 (7-52) Units/L Alkaline Phosphatase 61 (34-104) Units/L Albumin 3.3 L (3.5-5.7) g/dL Active Medications Acetaminophen (Tylenol) 650 mg PO Q6HR PRN PRN Reason: Mild Pain/Fever Stop: 12/20/18 21:50 Hydrocodone Bitart/Acetaminophen ([place] 7.5-325 Mg) 1 tab PO Q6H PRN PRN Reason: Pain Stop: 12/20/18 21:56 Albuterol Sulfate (Proventil Neb) 2.5 mg IH Q2H PRN; Protocol PRN Reason: Shortness Of Breath/Wheezing Stop: 12/20/18 21:50 Albuterol/Ipratropium (Duoneb) 3 ml IH [id number] [facility] Stop: 12/20/18 22:01 Last Admin: 06/21/18 09:24 Dose: 3 ml Aspirin (Aspirin) 81 mg PO DAILY [facility] Stop: 12/21/18 09:01 Bupropion HCl (Wellbutrin Sr) 100 mg PO BID [facility] Stop: 12/21/18 09:01 Carvedilol (Coreg) 6.25 mg PO BIDWM [facility]; Protocol Stop: 12/21/18 08:01 Gabapentin (Neurontin) 300 mg PO QID [facility] Stop: 12/21/18 09:01 Heparin Sodium (Porcine) (Heparin) 5,900 unit 70 unit/kg (5900 unit) IVP Q6HR PRN PRN Reason: SEE COMMENTS Stop: 12/20/18 21:50 Heparin Sodium (Porcine) (Heparin) 3,000 unit 35 unit/kg (3000 unit) IVP Q6H PRN PRN Reason: SEE COMMENTS Stop: 12/20/18 21:50 Potassium Chloride/Sodium Chloride (Kcl 20 Meq In 0.9% Sodium Chloride) 20 meq in 1,000 mls @ 100 mls/hr IVC .Q10H [facility] Stop: 06/21/18 17:59 Last Admin: 06/20/18 22:33 Dose: 100 mls/hr Heparin Sodium/Dextrose (Heparin 25,000 Unit/250 Ml D5w) 25,000 unit in 250 mls @ 11.872 mls/hr IVC .Q21H4M [facility]; Protocol Stop: 12/20/18 22:01 Last Titration: 06/21/18 06:30 Dose: 11 unit/kg/hr, 9.3 mls/hr Loratadine (Claritin) 10 mg PO DAILY [facility] Stop: 12/21/18 09:01 Naloxone HCl (Narcan) 0.4 mg IVP Q2M PRN PRN Reason: SEE COMMENTS Stop: 12/20/18 21:50 Omeprazole (Prilosec) 40 mg PO BID [facility] Stop: 12/20/18 22:01 Last Admin: 06/20/18 22:56 Dose: 40 mg Ondansetron HCl (Zofran Odt) 4 mg SL Q8HR PRN PRN Reason: Nausea And Vomiting Stop: 12/20/18 21:50 Pharmacy Profile Note (Patient Taking Own Medication) 0 each IH DAILY [facility] Stop: 12/21/18 09:01 Prednisone (Prednisone) 5 mg PO DAILY [facility] Stop: 06/23/18 09:01 Simvastatin (Zocor) 40 mg PO HS [facility]; Protocol Stop: 12/21/18 21:01 Tamsulosin HCl (Flomax) 0.4 mg PO DAILY [facility]; Protocol Stop: 12/21/18 09:01 Tizanidine HCl (Zanaflex) 4 mg PO BID [facility] Stop: 12/21/18 09:01 - Imaging and Cardiology Stress Test: report reviewed - EKG Interpretation EKG results cardiology: personally reviewed (SR, RBBB, LAFB, prior inferior infarct, lateral infarct.), other (12 hr tele AVG HR 61, SR) Consult Discharge Plan - Plan Referrals: NONE,PCP [Primary Care Provider] - <Khari Pena - Last Filed: 06/21/18 10:32> Date of Encounter: 06/21/18 - Attending Attestation I have personally performed a face to face evaluation on this patient. I have reviewed and agree with the care plan. History and Exam by me shows: CC: Chest pain HPI: Pt reports was in usual state of health 06/20/18, was walking approximately fifty feet towards his barn when he developed 8/10 mid sternal chest pain, radiating to both shoulders, associated with shortness of breath and mild diaphoresis, sat down, took 2 sl ntg without relief of pain, called squad, received two more sl ntg without relief, transported to [facility]. PT received several more sl ntg, IV narcotics, with initial worsening of chest pain, trial of oral antacids without improvement, then chest pain slowly resolved over thirty minutes. He reports approximately three hours of continuous chest pain, not relieved with tx, resolving spontaneously while waiting for transport to [facility]. He has not had recurrence of chest pain since hospitalization. ROS; Reviewed PMH: Reviewed Labs, Xrays, EKG: reviewed PE: Agree with findings as documented IMP: 1. NSTEMI; now pain free, recommend LHC/poss PCI today, risks and benefits discussed, pt elects to proceed 2. CAD: Severe two vessel Dx, pt unsure which vessels, but reports has two stents each in two different vessels, previous procedures performed at [facility] [place] 3. Renal cancer; partial resection right kidney, surgically removed 'about a fifth" of right kidney, followed by freezing another portion of right kidney 4. PVD: AAA stent graft 2017 placed at [place], follows with vascular surgery 5. COPD: severe, uses O2 prn daily, continues to smoke against medical advice. 6. Hypertension: controlled on current meds 7. Hyperlipidemia: on statin, fasting lipid profile pending. Assessment and Plan Discussion w patient/family: The assessment and plan as outlined above was discussed with the patient and/or family members who expressed understanding and agreement. All questions were answered. Thank you for involving us in the care of your patient. Please call with any questions. History of Present Illness History of present illness: Mr. Andrews is a 73 year old male All Systems Review: The remainder of the systems were reviewed and are negative Physical Examination Vital Signs, Last 4 Hours Temp Pulse Resp BP Pulse Ox 06/21/18 09:24 16 97 06/21/18 07:31 97.8 F 60 16 149/77 97 Results 06/21/18 04:29 06/21/18 04:29 Lab Results 06/20/18 06/20/18 06/20/18 22:27 22:27 22:27 WBC 12.3 H Hgb 12.6 L Hct 40.9 Plt Count 212 INR 1.0 APTT 26.5 Sodium Potassium Chloride Carbon Dioxide BUN Creatinine Glucose Calcium Magnesium Total Bilirubin AST ALT Alkaline Phosphatase Troponin I 1.42 H* 06/21/18 06/21/18 04:29 04:29 WBC 9.6 Hgb 11.3 L Hct 35.9 L Plt Count 164 INR APTT Sodium 139 Potassium 3.7 Chloride 106 Carbon Dioxide 28 BUN 16 Creatinine 0.85 Glucose 93 Calcium 8.6 Magnesium 1.8 Total Bilirubin 0.3 AST 17 ALT 9 Alkaline Phosphatase 61 Troponin I 2.44 H*
[2018-06-21] MEDS: tiZANidine 4 MG TABLET PO SCH ×2 (09:36→20:40)
[2018-06-21] MEDS: Gabapentin 300 MG CAPSULE PO SCH ×4 (09:36→20:40)
[2018-06-21] MEDS: Loratadine 10 MG TABLET PO SCH (09:36)
[2018-06-21] MEDS: predniSONE 5 MG TABLET PO SCH (09:36)
[2018-06-21] MEDS: BuPROPion SR (12 HR) 100 MG TABLET PO SCH ×2 (09:36→20:40)
[2018-06-21] MEDS: Aspirin 81 MG TAB.CHEW PO SCH (09:36)
[2018-06-21] MEDS: 0.9 % Sodium Chloride w KCl 20 MEQ/1,000 ML MLS IVC SCH (09:37)
[2018-06-21] MEDS ORDERED: Budesonide/Formoterol 160/4.5 1 PUFF INH IH SCH (10:00)
[2018-06-21] MEDS ORDERED: Albuterol 2.5 MG/3 ML NEBULIZER IH PRN (10:49)
[2018-06-21] MEDS ORDERED: *HR* Heparin 10,000 UNIT/10 ML VIAL ONE (12:15)
[2018-06-21] MEDS ORDERED: 0.9 % Sodium Chloride 2,000 ML ONE (12:15)
[2018-06-21] MEDS ORDERED: ISOVUE-370 200 ML INFUS..BTL ONE (12:15)
[2018-06-21] MEDS ORDERED: Heparin 1,000 UNITS/500 mL 500 ML ONE (12:15)
[2018-06-21] MEDS ORDERED: Nitroglycerin 1,000 MCG/10 ML VIAL IV ONE (12:16)
--- NOTE | 2018-06-21 12:47 | Internal Med Progress Note ---
Hospitalist Progress Note - Encounter Date of Encounter: 06/21/18 Time of Encounter: 12:39 - Subjective Interval History: Mr. Andrews is a 73 year old male with known PMH of HTN, CAD s/p PCI, HLD COPD, GERD, Renal cell cancer s/p partial nephrectomy pt presented to our hospital as transfer from [facility] ER for concerns of chest pain. Workup there was negative except for an elevated d-dimer. He had a CTA of the chest, which was a suboptimal study and could only rule out central PE. He was therefore transferred to [facility] for ongoing workup and treatment. He did mention had sudden onset of sharp, severe, mid-several chest pain radiating to both arms. His troponin started trending high peaked @ 2.44. He denied any active CP now. Feels better. Currently on heparin gtt. - Exam Vitals: Temp Pulse Resp BP Pulse Ox 98.3 F 54 16 107/65 98 06/21/18 12:18 06/21/18 12:18 06/21/18 12:18 06/21/18 12:18 06/21/18 12:18 Exam: Gen: Alert, awake, Oriented to time,place and person Chest: Diminished breath sounds B/L, No wheezing, No crackles, No rales Heart: S1S2+ RRR No murmurs Abd: Soft, NT, BS +, No organomegaly Ext: No edema, pulses are palpable, No calf tenderness Neuro : Benign findings Skin: No rash. - Assessment and Plan (1) Pleuritic chest pain Current Visit: Yes Status: Acute Assessment and Plan: Trop trending high - @ 2.44 EKG -Did not show any acute ischemic changes ASA, Coreg and Statin Scheduled for C today cont Heparin gtt. Patient does need to stay in the hospital more than 2 midnights due to his complex medical problems. So we will change him to full admission today. I did review my colleague Dr. Leon's H & P including HPI, PMH, PSH, FH, SH, and ROS no changes noticed (2) NSTEMI (non-ST elevated myocardial infarction) Current Visit: Yes Status: Acute Assessment and Plan: Seems to be due to CP scheduled for C today Appreciate Card recommendations cont heparin gtt (3) Renal cancer Current Visit: No Status: Acute Assessment and Plan: follow up as an out pt stable Cr now avoid nephro toxic meds (4) Coronary artery disease Current Visit: Yes Status: Chronic Assessment and Plan: resumed all home meds (5) DVT prophylaxis Current Visit: Yes Status: Acute Assessment and Plan: on heparin gtt (6) COPD (chronic obstructive pulmonary disease) Current Visit: Yes Status: Chronic Assessment and Plan: Not in exacerbation Resumed home regimen Cont Oxygen and CPAP per home settings. He does have chronic hypoxic resp failure - uses 2 lit O2 at home at his baseline now - Time Spent with Patient Total time spent is greater than 50% in coordination of care (as documented) at patient's floor/unit and/or counseling patient: Internal Medicine: Result - Labs CBC & Chem 7: 06/21/18 04:29 06/21/18 04:29 Labs: Short CBC 06/20/18 06/21/18 Range/Units 22:27 04:29 WBC 12.3 H 9.6 (4.3-11.1) K/mcL Hgb 12.6 L 11.3 L (12.9-16.9) g/dL Hct 40.9 35.9 L (37.5-50.1) % Plt Count 212 164 (140-400) K/mcL Neutrophils # 6.4 (1.6-8.9) K/mcL BMP 06/21/18 04:29 Sodium 139 Potassium 3.7 Chloride 106 Carbon Dioxide 28 BUN 16 Creatinine 0.85 Glucose 93 Calcium 8.6 Cardiac Enzymes 06/20/18 06/21/18 Range/Units 22:27 04:29 Troponin I 1.42 H* 2.44 H* (< 0.04) ng/mL Liver Function 06/21/18 Range/Units 04:29 Total Bilirubin 0.3 (0.3-1.0) mg/dL AST 17 (13-39) Units/L ALT 9 (7-52) Units/L Alkaline Phosphatase 61 (34-104) Units/L Albumin 3.3 L (3.5-5.7) g/dL - ABG Interpretation ABG results: PT/INR, D-dimer PT 10.7 Seconds (9.4-12.1) 06/20/18 22:27 Consult Discharge Plan - Plan Referrals: NONE,PCP [Primary Care Provider] - (3) Renal cancer Qualifiers: Laterality: unspecified laterality Qualified Code(s): C64.9 - Malignant neoplasm of unspecified kidney, except renal pelvis (4) Coronary artery disease Qualifiers: Coronary Disease-Associated Artery/Lesion type: [place] artery [place] vs. transplanted heart: [place] heart Associated angina: with stable angina Qualified Code(s): I25.118 - Atherosclerotic heart disease of [place] coronary artery with other forms of angina pectoris (6) COPD (chronic obstructive pulmonary disease) Qualifiers: COPD type: emphysema Emphysema type: panlobular Qualified Code(s): J43.1 - Panlobular emphysema
[2018-06-21] MEDS ORDERED: *HR* Midazolam HCl 2 MG/2 ML VIAL ONE (13:10)
--- NOTE | 2018-06-21 13:11 | Pre-Sedation Evaluation ---
Pre-sedation evaluation - Pre-sedation checklist Procedure: Bronchoscopy Recent Vitals: Last Vital Signs Temp 98.3 F 06/21/18 12:18 Pulse 54 06/21/18 12:18 Resp 16 06/21/18 12:18 BP 107/65 06/21/18 12:18 Pulse Ox 98 06/21/18 12:18 H&P (including ROS) documented in medical record: Yes Previous reaction to sedatives/anesthetics: No Dietary Status: NPO after Midnight Airway Assessment: Patient can open mouth completely, TMJ function normal Dentition: full dentition Possible difficult airway: No ASA Classification *see protocol: CLASS II-Mild systemic disease Cardiac Registry (Cardio Only) - Functional Capacity Functional Capacity: >=4 METS with symptoms - Clincal Frailty Scale Clinical Frailty Scale: Managing Well
[2018-06-21] MEDS ORDERED: Verapamil 5 MG/2 ML VIAL ONE (13:16)
[2018-06-21] MEDS ORDERED: Ondansetron 4 MG/2 ML VIAL IVP PRN (13:37)
--- NOTE | 2018-06-21 13:42 | Event Note ---
Date of Encounter: 06/21/18 Time of Encounter: 13:40 - Cardiology Event Note cath completed LVEF 55% RCA dominant with proximal tubular 45-50%, plaque in remainder of the vessel LCA calcified left main- mild lad disease with no stent restenosis. circ: no stent restenosis. medical therapy. With positive enzymes add plavix 75 mg daily for non stemi diagnosis.
--- NOTE | 2018-06-21 13:59 | Invasive Diagnostic Lab Proc ---
Name: Delon Andrews Date of Study: 06/21/2018 Date: 1945 Ht: 74.0in Medical Record#: [id number] Age: 73 Wt: 187.39lb Gender: Male BSA: 2.11 Order #: [id number] BMI: 24.05 Physicians Procedure Physician: Antonio Martin MD Referring MD: Referring MD: Staff Name Position Time In Thelma Coley RT (R) Scrub 01:13 PM Patricia Hays RN Supervisor Grading 01:13 PM Justino Talamantes RN Supervisor Grading 01:13 PM Indications Indication Non-Stemi Procedures Performed Procedure L HRT ARTERY/VENTRICLE ANGIO Pre-Procedure Checklist Informed consent is complete signed and on chart. H&P is on chart. ID band is on and ID verified with patient. Patient NPO for procedure The procedure was described for the patient and questions were answered. Blood Pressure: 149/77 ECG is on chart. Rhythm: NSR Plan of Care Patient will tolerate the procedure without complications. Adequate level of comfort will be maintained. Hemodynamics will remain stable Patient will recover from procedure without complications. Respiratory function will be maintained. Cardiac rhythm will remain stable. Patient temperature will be maintained. Patient and/or family have verbalized understanding of the procedure. Patient Education Chief Complaint/Reason for Test: Cardiac Cath Developmental Category: Geriatric (65+ years) Developmentally Appropriate for Age: Yes Learning Barriers: None Education Needs: Procedure Education Method: Verbal Information Taught: Cardiac Cath Educational Evaluation: Able to repeat information Intravenous Access Time IV Size Location DC'd Fluid/Drip Rate Units RN 01:05 PM 18g 1 04/07" Patent On Arrival Rt Antecubital 0.9NaCl 25 ml/hr Patricia Hays RN Allergies morphine prednisone Vital Signs Time BP (mmHg) HR (bpm) O2 Sat. RR (bpm) LOC 01:05 PM 149 / 77 60 97 % 16 5 = Fully awake and oriented or at pre-proc level 01:06 PM / % 5 = Fully awake and oriented or at pre-proc level 01:19 PM / % 5 = Fully awake and oriented or at pre-proc level 01:19 PM / % 4 = Oriented but drowsy 01:16 PM 115 / 70 58 95 % 23 01:20 PM 112 / 68 56 94 % 13 01:25 PM 99 / 61 73 92 % 24 01:30 PM 100 / 59 59 92 % 21 01:35 PM 108 / 62 68 92 % 19 01:34 PM / % 4 = Oriented but drowsy Procedural Medications Time Medication Dose Units Method Given By 01:14 PM Oxygen 2 L/min nasal cannula Patricia Hays RN 01:21 PM Lidocaine 2% 2 ml Subcutaneous Antonio Martin MD 01:23 PM Heparin 2000 units Nitroglycerin 200 mcg Verapamil 2.5 mg Intraarterial Antonio Martin MD 01:25 PM Versed 2 mg Intravenous Justino Talamantes RN 01:26 PM Oxygen 4 L/min nasal cannula Justino Talamantes RN ASA Classification: CLASS II- Mild systemic disease (i.e. well-controlled diabetes, hypertension, asthma, cigarette smoking) Harish Score Preprocedure Postprocedure Activity 2- Moves 4 extremities sustained head lift Activity 2- Moves 4 extremities sustained head lift Circulation 2- SBP +/= 20 points of pre-anesthetic level Circulation 2- SBP +/= 20 points of pre-anesthetic level Consciousness 2- Awake and alert oriented x 3 Consciousness 2- Awake and alert oriented x 3 O2 Saturation 2- Able to maintain O2 satruation of 92% on room air O2 Saturation 2- Able to maintain O2 satruation of 92% on room air Respiratory 2- Able to deep breathe and cough well Respiratory 2- Able to deep breathe and cough well Total Score 10 Total Score 10 Contrast Agent: Isovue Diagnostic Contrast: 60 ml Total Contrast: 60 ml Fluoro Dose: 40 mGy Procedure Log Time Note Enter By 12:22 PM Patient charges- Angio tray pack, Navilyst 3mm J, Pulse Oximetry and ACIST tubing and transducer 2 01:05 PM CathStat 01:06 PM Pt arrived to manager laboratory 1 at 13:06 [email or web address] 01:06 PM Case Delayed No [email or web address] 01:06 PM Time: 13:06 Patient comfortable and pain free: Yes [email or web address] 01:06 PM Time: 13:06LOC: 5 = Fully awake and oriented or at pre-proc level [email or web address] 01:07 PM Physician arrived 13:07 2 01:07 PM Ryan and pipe completed [email or web address] :07 PM Sign in performed according to hospital policy. Informed consent was obtained. [email or web address] 01:08 PM Procedure start 13:ilson2 :08 PM Clinical Presentation: Non-STEMI :12 PM ASA Class CLASS II- Mild systemic disease (i.e. well-controlled diabetes, hypertension, asthma, cigarette smoking) : PM Hair removed from procedure site in procedure lab using clippers. Right wrist and Right groin prepped with Chloraprep by Thelma Coley (R), then patient was draped. Skin intact. : PM Thelma Coley (R) Position: Scrub Time in: :: PM Patricia Hays RN Position: Supervisor Grading Time in: :: PM Justino Talamantes RN Position: Supervisor Grading Time in: :: PM Recorded ECG: HR=65 Condition=Condition 1 01:14 PM Time: 13:14 Oxygen on at 2 L/min per nasal cannula by Patricia Hays RN :15 PM Vitals capture started with the following parameters, Patient=Adult, Interval=5 min, Initial Idevkepx=823 mmHg, Deflation Rate=3 mmHg, Cuff placed on Right Arm 01:16 PM HR=58 bpm, YDOY=692/70 mmhg, SpO2=95.0 %, Resp=23 B/min 01:18 PM Time: :18 Patient comfortable and pain free: Yes PM Time: :19LOC: 5 = Fully awake and oriented or at pre-proc level kkall: PM Time out was performed according to hospital policy. Conscious sedation and anesthesia was achieved (see medication log with in this report above) PM Time: 13:25 Versed 2 mg Intravenous Given by Justino Talamantes RN : PM HR=56 bpm, LEDP=060/68 mmhg, SpO2=94.0 %, Resp=13 B/min : PM Pressure channel 1 zeroed. : PM Time: : 2 ml Lidocaine 2% to right radial Subcutaneous Given by Antonio Martin MD : PM Access obtained by percutaneous puncture. 6Fr 10cm Terumo [place] sheath placed in right Radial artery. [id number] PM Time: :23 Patient given 2000 units Heparin, 200 mcg Nitroglycerin, and 2.5 mg Verapamil Intraarterial by Antonio Martin MD. This is given to reduce risk of vessel spasm and thrombosis. [email or web address] 01:23 PM 5Fr FL3.5 catheter inserted over the wire [id number] [email or web address] 01:23 PM wire removed [email or web address] 01:25 PM HR=73 bpm, NIBP=99/61 mmhg, SpO2=92 %, Resp=24 B/min 01:26 PM Pressure channel 2 zeroed. :26 PM wire reinserted for postitioning of catheter kkall: PM wire removed kkall: PM Time: 13:26 Oxygen on at 4 L/min per nasal cannula by Justino Talamantes RN :26 PM Recorded Pressure: Ao, HR=62, Condition=Condition 1 (Aorta) Ao 103/67/82 01:27 PM LCA angiography performed in multiple views. [email or web address] 01:28 PM Catheter removed kkallner :29 PM 5Fr FR 4 catheter inserted over the wire [facility] kkallner :29 PM wire removed kkallner :30 PM RCA angiography performed in multiple views. [email or web address] 01:30 PM HR=59 bpm, EVVZ=595/59 mmhg, SpO2=92 %, Resp=21 B/min 01:31 PM Recorded Pressure: Ao, HR=61, Condition=Condition 1 (Aorta) Ao 113/70/86 01:32 PM Catheter removed [email or web address] 01:32 PM 5Fr Pigtail catheter inserted over the wire [facility] kkallner 01:32 PM wire removed kkallner :32 PM Catheter crossed the aortic valve and was selectively placed in the left ventricle. Pressures recorded on pullback for left heart catheterization. [email or web address] 01:32 PM Bolus angiogram of left Ventricle complete: hand injected [email or web address] 01:33 PM Recorded Pressure: LV, HR=74, Condition=Condition 1 (Left Ventricle) LV 126/26/34 01:33 PM Recorded Pressure: LV, HR=73, Condition=Condition 1 (Left Ventricle) LV 118/17/24 01:34 PM Recorded Pressure: LV, Ao, HR=73, Condition=Condition 1 (Left Ventricle) LV 115/14/23, (Aorta) Ao 113/60/83 01:34 PM Time: 13:19LOC: 4 = Oriented but drowsy [email or web address] 01:34 PM Time: 13:18 Patient comfortable and pain free: Yes [email or web address] 01:34 PM Catheter and wire removed [email or web address] 01:35 PM Coronary Dominance: right [email or web address] 01:35 PM HR=68 bpm, DSLR=161/62 mmhg, SpO2=92.0 %, Resp=19 B/min 01:35 PM Procedure completed at 13:35 06/21/2018 [email or web address] 01:35 PM Did you address [place] flow and Dominance? Yes [email or web address] 01:37 PM Sign out completed: Radiation Dose 471.59 mGy, 40.5 mGy/cm2 Fluoro Time: 2.6 Isovue 370 - 200ml contrast 60 ml given by Antonio Martin MD. Complications: None. The patient was discharged out of the rn cardiac cath in stable condition. Sedation minutes 16. Cardiac Rehab Consult needed: No. Confirmed administered medications: Yes [email or web address] 01:37 PM Isovue 370 - 200ml,1 Bottle(s) used. [email or web address] 01:37 PM Arterial sheath pulled, Vasc Band closure device used and was Successful S/N. kkallner 01:37 PM 11 ml air in Vasc Band. [email or web address] 01:37 PM Estimated Blood Loss: minimal [email or web address] 01:37 PM Post ECG NSR kkallner 01:37 PM Post Blood Pressure 108/62 kkallner 01:37 PM 13:37 Post Pulses Rt Radial 1+ [email or web address] 01:38 PM Information taught Cardiac Cath and Vasc Band kkallner 01:38 PM Education needs Procedure, Plan of Care, and Responsibilities of Patient in Care [email or web address] 01:38 PM Learning barriers :None kkallner 01:38 PM Education Methods Verbal kkallner 01:38 PM Education evaluation Able to repeat information [email or web address] 01:39 PM Site status No bleeding/hematoma - Rt Wrist as reported by Thelma Coley RT (R) at 13:38 [email or web address] 01:39 PM Plavix, Effient or Brilinta given No kkallner 01:39 PM Delay to floor No [email or web address] 01:39 PM Patient out of room: 13:39 kkallner 01:39 PM Family placed in consult room. [email or web address] 01:39 PM Complications: None kkallner 01:44 PM Lesion found in Proximal LAD. Pre Stenosis: 20 Pre [place] Flow: [email or web address] 01:44 PM Lesion found in Mid LAD. Pre Stenosis: 50 Pre [place] Flow: [email or web address] 01:44 PM Lesion found in Distal LAD. Pre Stenosis: 15 Pre [place] Flow: [email or web address] 01:44 PM Lesion found in 1st Diagonal. Pre Stenosis: 60 Pre [place] Flow: [email or web address] 01:44 PM Lesion found in Distal Circumflex. Pre Stenosis: 15 Pre [place] Flow: [email or web address] 01:45 PM Lesion found in 1st Marginal. Pre Stenosis: 25 Pre [place] Flow: [email or web address] 01:45 PM Lesion found in 2nd Marginal. Pre Stenosis: 25 Pre [place] Flow: [email or web address] 01:45 PM Lesion found in Right PDA. Pre Stenosis: 15 Pre [place] Flow: [email or web address] 01:45 PM Left Main Coronary Artery with 0% stenosis kkallner 01:46 PM Proximal Left Anterior Descending Coronary Artery with 20% stenosis. If graft is supplying this territory, 0 % stenosis. [email or web address] 01:46 PM Mid/Distal Left Anterior Descending Coronary Artery and diagonal branches with 60% stenosis. If graft is supplying this area, 0 % stenosis kkallner 01:46 PM Circumflex, Obtuse Marginal, Left Posterior Descending, and Left Posterolateral Coronary Arteries with 25 % stenosis. If graft is supplying this area, 0 % stenosis kkallner 01:46 PM Right Coronary, Right Posterior Descending Arteries with Right Posterolateral and Acute Marginal branches with 60 % stenosis. If graft is supplying this area, 0 % stenosis kkallner 01:46 PM Ramus with 0% stenosis. If graft is supplying this area, 0 % stenosis kkallner 01:46 PM Lesion found in Proximal RCA. Pre Stenosis: 60 Pre [place] Flow: [email or web address] 01:46 PM Lesion found in Mid RCA. Pre Stenosis: 15 Pre [place] Flow: [email or web address] 01:46 PM Lesion found in Distal RCA. Pre Stenosis: 15 Pre [place] Flow: [email or web address] 01:49 PM Time: 13:34 Patient comfortable and pain free: Yes [email or web address] 01:49 PM Time: 13:34LOC: 4 = Oriented but drowsy kkallner 01:52 PM Report given to Aliyah CORADO Pt taken to Room #11. 13:52 [email or web address] Complications Complication None None Hemodynamics Pressures Site Systolic/A Wave Diastolic/V Wave Mean AO 103 67 82 AO 113 70 86 LV 126 26 34 LV 118 17 24 LV 115 14 23 AO 113 60 83 Post Procedure Information Blood Pressure: 108/62 mmHg Rhythm: NSR Post procedural instructions were given Site Checks Time Location Status Staff Sheath In? Note 01:38 PM Rt Wrist No bleeding/hematoma Thelma Coley RT (R) Pulses Time Site Pre-Procedure Post-Procedure Note 06/21/2018 1:05:00 PM Bilateral DP & PT 1+ 06/21/2018 1:05:00 PM Rt Radial 2+ 1:37:00 PM Rt Radial 1+ Updated by Maribell Melgoza RT JaguarR) on 06/21/2018 1:52:41 PM electronically signed on 06/21/2018 1:53:21 PM with status of Final
--- NOTE | 2018-06-21 14:40 | Event Note ---
Date of Encounter: 06/21/18 Time of Encounter: 14:38 - Cardiology Event Note Per interventionalist event note below, LHC completed without intervention--medical management recommended. Started Imdur 30mg daily and Plavix 75mg daily. Continue ASA, Statin, BB. TTE pending. Cardiology signing off. Reconsult PRN. Will coordinate outpt follow-up in 1 week. Please reconsult for any significant abnormalities on TTE.
[2018-06-21] MEDS: Isosorbide MONOnitrate (24 HR) 30 MG TAB.ER.24H PO SCH (16:43)
[2018-06-22] MEDS: Ipratropium/Albuterol Neb 3 ML IH SCH ×2 (03:23→09:53)
[2018-06-22 04:28] LABS: Basophils # 0.1 K/mcL (0.0-0.2); Basophils % 0.6 %; Eosinophils # 0.2 K/mcL (0.0-0.6); Eosinophils % 2.7 %; Hematocrit 33.7 % (37.5-50.1); Hemoglobin 10.4 g/dL (12.9-16.9); Immature Granulocytes % 2.3 % (0-4); Lymphocytes # 1.8 K/mcL (0.6-4.6); Lymphocytes % 20.5 %; Mean Corpuscular HGB Conc 30.9 g/dL (31.6-35.5); Mean Corpuscular Hemoglobin 29.5 pg (28.0-33.3); Mean Corpuscular Volume 95.5 fL (83.0-100.0); Mean Platelet Volume 10.5 fL (9.4-12.4); Monocytes # 0.7 K/mcL (0.0-1.3); Monocytes % 8.2 %; Neutrophils # 5.7 K/mcL (1.6-8.9); Platelet Count 162 K/mcL (140-400); Red Blood Count 3.53 M/mcL (4.19-5.50); Red Cell Distribution Width 13.6 % (11.5-14.5); Segmented Neutrophils % 65.7 %
[2018-06-22 04:46] LABS: BUN/Creatinine Ratio 15 (6-26); Blood Urea Nitrogen 13 mg/dL (8-23); Calcium 8.6 mg/dL (8.6-10.3); Carbon Dioxide 27 mEq/L (23-29); Chloride 107 mEq/L (98-107); Glucose 76 mg/dL (70-105); Osmolality,Calculated 291 (280-300); Potassium 4.2 mEq/L (3.5-5.1); Sodium 141 mEq/L (136-145); eGFR For Non-African Americans > 60 (> 60)
[2018-06-22 07:18] VITALS: BP 116/65
[2018-06-22] MEDS: Aspirin 81 MG TAB.CHEW PO SCH (08:20)
[2018-06-22] MEDS: Isosorbide MONOnitrate (24 HR) 30 MG TAB.ER.24H PO SCH (08:20)
[2018-06-22] MEDS: Gabapentin 300 MG CAPSULE PO SCH (08:20)
[2018-06-22] MEDS: tiZANidine 4 MG TABLET PO SCH (08:20)
[2018-06-22] MEDS: BuPROPion SR (12 HR) 100 MG TABLET PO SCH (08:20)
[2018-06-22] MEDS: Loratadine 10 MG TABLET PO SCH (08:20)
[2018-06-22] MEDS: predniSONE 5 MG TABLET PO SCH (08:21)
[2018-06-22] MEDS ORDERED: CETIRIZINE HCL 10 MG PO SCH (09:00)
--- NOTE | 2018-06-22 09:18 | Discharge Summary ---
- NOTES TO OUTPATIENT PROVIDER Notes to Outpatient Provider: Follow up with PCP in one week. Follow-up with cardiology in one to 2 weeks. Please start taking Aspirin 81mg and Plavix 75mg PO Daily. Orders not resulted at time of discharge: Pending orders 06/21/18 06:00 ECG 12 lead ECG [ECG] AM 0600 Date of Encounter: 06/22/18 Time of Encounter: 09:14 - Discharge Diagnosis (1) Pleuritic chest pain Priority: Primary Status: Acute (2) NSTEMI (non-ST elevated myocardial infarction) Priority: Primary Status: Acute (3) Renal cancer Priority: Secondary Status: Acute Qualifiers: Laterality: unspecified laterality Qualified Code(s): C64.9 - Malignant neoplasm of unspecified kidney, except renal pelvis (4) Coronary artery disease Priority: Secondary Status: Chronic Qualifiers: Coronary Disease-Associated Artery/Lesion type: [place] artery [place] vs. transplanted heart: [place] heart Associated angina: with stable angina Qualified Code(s): I25.118 - Atherosclerotic heart disease of [place] coronary artery with other forms of angina pectoris (5) DVT prophylaxis Priority: Secondary Status: Acute (6) COPD (chronic obstructive pulmonary disease) Priority: Secondary Status: Chronic Qualifiers: COPD type: emphysema Emphysema type: panlobular Qualified Code(s): J43.1 - Panlobular emphysema Hospital course: Mr. Andrews is a 73 year old male with known PMH of HTN, CAD s/p PCI, HLD COPD, GERD, Renal cell cancer s/p partial nephrectomy pt presented to our hospital as transfer from [facility] ER for concerns of ches t pain. Workup there was negative except for an elevated d-dimer. He had a CTA of the chest, which was a suboptimal study and could only rule out central PE. He was therefore transferred to [facility] for ongoing workup and treatment. He did mention had sudden onset of sharp, severe, mid-several chest pain radiating to both arms. His troponin started trending high peaked @ 2.44. He was placed on heparin gtt initially. Pt was evaluated by Cardiology who did [facility] which showed - LVEF 55%, RCA dominant with proximal tubular 45-50%, plaque in remainder of the vessel, LCA calcified left main- mild lad disease with no stent restenosis. circ: no stent restenosis. Recommended for medical therapy. So placed him ASA and Plavix as well as also started him on Imdur 30mg pO Daily as per cardiology recommendations. He denied any more CP. - Time Spent with Patient Total time spent providing and/or coordinating discharge services: - Discharge Medications Prescriptions: New Aspirin Enteric Coated [Aspirin EC] 81 mg PO DAILY #30 tablet. Clopidogrel [Plavix] 75 mg PO DAILY #30 tablet Isosorbide MONOnitrate (24 HR) [Imdur] 30 mg PO DAILY #30 tab.er.24h Continue Tamsulosin [Flomax] 0.4 mg PO DAILY BuPROPion SR (12 HR) [Wellbutrin SR] 100 mg PO BID Citalopram Hydrobromide [Celexa] 20 mg PO DAILY Tizanidine HCl [Zanaflex] 4 mg PO BID Ipratropium/Albuterol Neb [Duoneb] 3 ml IH Q6HR Losartan/Hydrochlorothiazide [Hyzaar 100-12.5 Tablet] 0.5 tab PO DAILY Gabapentin [Neurontin] 300 mg PO QID Carvedilol [Coreg] 6.25 mg PO BIDWM tablet Albuterol Sulfate [Albuterol Inhaler] 2 puff IH Q4H PRN PRN Reason: Shortness Of Breath Cetirizine HCl 10 mg PO DAILY predniSONE [PredniSONE] 10 mg PO AD Roflumilast [Daliresp] 500 mcg PO DAILY Simvastatin [Zocor] 40 mg PO HS Tiotropium Br/Olodaterol HCl [Stiolto Respimat Inhal [place]] 2 puff IH DAILY Omeprazole [PriLOSEC] 40 mg PO DAILY HYDROcodone/Acet 7.5/325 mg [[place] 7.5-325 mg] 1 tab PO Q6H PRN PRN Reason: Pain Home Medications: BuPROPion SR (12 HR) [Wellbutrin SR] 100 mg PO BID 07/29/15 [History] Citalopram Hydrobromide [Celexa] 20 mg PO DAILY 07/29/15 [History] Tamsulosin [Flomax] 0.4 mg PO DAILY 07/29/15 [History] Tizanidine HCl [Zanaflex] 4 mg PO BID 07/29/15 [History] Ipratropium/Albuterol Neb [Duoneb] 3 ml IH Q6HR 02/17/16 [History] Losartan/Hydrochlorothiazide [Hyzaar 100-12.5 Tablet] 0.5 tab PO DAILY 02/17/16 [History] Gabapentin [Neurontin] 300 mg PO QID 10/11/16 [History] Carvedilol [Coreg] 6.25 mg PO BIDWM tablet 04/04/17 [Rx] HYDROcodone/Acet 7.5/325 mg [[place] 7.5-325 mg] 1 tab PO Q6H PRN 06/22/17 [History] Omeprazole [PriLOSEC] 40 mg PO DAILY 06/22/17 [History] Albuterol Sulfate [Albuterol Inhaler] 2 puff IH Q4H PRN 06/20/18 [History] Cetirizine HCl 10 mg PO DAILY 06/20/18 [History] Roflumilast [Daliresp] 500 mcg PO DAILY 06/20/18 [History] Simvastatin [Zocor] 40 mg PO HS 06/20/18 [History] Tiotropium Br/Olodaterol HCl [Stiolto Respimat Inhal [place]] 2 puff IH DAILY 06/20/18 [History] predniSONE [PredniSONE] 10 mg PO AD 06/20/18 [History] Aspirin Enteric Coated [Aspirin EC] 81 mg PO DAILY #30 tablet.dr 06/22/18 [Rx] Clopidogrel [Plavix] 75 mg PO DAILY #30 tablet 06/22/18 [Rx] Isosorbide MONOnitrate (24 HR) [Imdur] 30 mg PO DAILY #30 tab.er.24h 06/22/18 [Rx] Allergies/Adverse Reactions: Allergy/AdvReac Type Severity Reaction Status Date / Time morphine Allergy Anaphylaxis Verified 06/20/18 22:19 Date of admission: 06/21/18 13:05 Primary care physician: PCP NONE Consults: 06/20/18 21:49 Consult to Cardiology [CONS] Routine Comment: Consulting Provider: Cardiology Christen Reason for Consult: chest pain; CAD; h/o PCI/stents Call Completed: No - Constitutional Vitals: Temp Pulse Resp BP Pulse Ox 98.4 F 61 20 116/65 95 06/22/18 07:17 06/22/18 07:17 06/22/18 07:17 06/22/18 07:17 06/22/18 07:17 General appearance: Present: cooperative, A&O X 3, pleasant, no acute distress, answers questions appropriately Exam: Gen: Alert, awake, Oriented to time,place and person Chest: Diminished breath sounds B/L, No wheezing, No crackles, No rales Heart: S1S2+ RRR No murmurs Abd: Soft, NT, BS +, No organomegaly Ext: No edema, pulses are palpable, No calf tenderness Neuro : Benign findings Skin: No rash. - Patient Status Disposition: Home, Self-Care Condition: Good Overall status at discharge: patient is back to baseline - Discharge Instructions Follow Up With: Antonio Martin MD [Partnered Physician] - (The cardiology office will call you with an appointment time and day. If you do not hear anything with in 2 days please call the office at the number provided. Thank you! ) Naresh Trotter MD [Partnered Physician] - (Appointment has been requested.) - Diet and Activity Activity: increase activity as tolerated Diet: low salt diet
== END 2018-06-22 11:26 | disposition home or self-care (01) | DRG 281 ==
LOC: 3BNU → SUATTDRO 20:34 → 3BNU 06-21 13:04
PROVIDERS: ADMIT Internal Medicine; ATTEND Family Medicine

== ENCOUNTER 2018-08-02 16:22 | Inpatient (IN) ==
[2018-08-02] MEDS ORDERED: Acetaminophen 325 MG TABLET PO PRN (19:56)
[2018-08-02] MEDS ORDERED: Naloxone 0.4 MG/ML INJ IVP PRN (19:56)
[2018-08-02] MEDS ORDERED: Albuterol 2.5 MG/3 ML NEBULIZER IH PRN (19:56)
[2018-08-02] MEDS ORDERED: Ondansetron 4 MG/2 ML VIAL IVP PRN (19:56)
--- NOTE | 2018-08-02 20:47 | Internal Med History&Physical ---
Date of Encounter: 08/02/18 Time of Encounter: 19:35 Internal Medicine - H&P: HPI Chief complaint: SOB Admitted From: Hospital to Hospital Transfer Plans for Post Hospital Care: Home History of present illness: Mr. Andrews is a 73 year old male who presents in transfer from [facility]. He presented there with complaints of shortness of breath, wheezing, nonproductive cough, and fatigue. Initial workup revealed patient to have a positive troponin, abnormal EKG, and elevated d-dimer. CT angiogram of his chest was performed, which was negative for PE, but he did have evidence of multifocal pneumonia. He received antibiotics, received a dose of Lovenox, and was transferred to hospitalist service with cardiology consultation. Upon arrival to the floor, patient had abnormal telemetry strips suggesting ST e levation. Therefore, the primary nurse contacted cardiology who ordered STAT echo, EKG, and troponin. Stat EKG was reviewed by Dr. Talbert and was negative for STEMI criteria. I was then notified by the nurse that the patient was here at [facility], and I saw him shortly after arrival. Upon my assessment of the patient, he remains chest pain-free. He did have a recent non-STEMI about 1 month ago. At that time, he did have chest pain. However, currently, he has no chest pain whatsoever. He admits to having had subjective fevers, cough, wheezing, and increasing shortness of breath. Repeat troponin is negative at less than 0.03. I reviewed EKG personally, and I contacted Dr. Talbert and personally discussed the case with him. His EKG is unchanged from his prior EKGs. Dr. Talbert agrees that it is not a STEMI and that we should treat him for COPD and pneumonia. He will review the stat echo and then consult and see patient in the morning. Past Med Surg Social Fam HX - Past Medical History Attestation: Yes The following information was validated with the patient. Source: patient, old records reviewed Medical history: aortic aneurysm, arthritis, asthma, cancer, COPD, coronary artery disease, GERD, hyperlipidemia, hypertension, malignancy, myocardial infarction, renal disease Additional medical history: 4 heart stents, cancer kidney right has had treatment Psychiatric history: anxiety, depression - Past Surgical History Surgical History: angioplasty/stent, orthopedic, other, other Additional surgical history: kidney surgery - Social History Smoking Status: Current some day smoker Smokeless Tobacco Status: No Alcohol use: none Drug use: none Current living situation: Home Activity Level: Independent ambulation Recent Out of Country Travel Within the Last 8 Weeks: No - Family History Mother Family Member Ethnicity: Non- Living Status: Hx Family Cardiac Disorders: Yes Father Adopted: Yes Family Member Ethnicity: Non- Living Status: Hx Family Cardiac Disorders: Yes (self, brother,mother) Hx Family Respiratory Disorders: Yes (self, father) Hx Family Cancer: Yes (self,father,brother) Hx Family GI Disorders: Yes (self) Hx Family Endocrine Disorder: No Hx Family Neuromuscular Disorders: No Hx Family Neurologic Disorders: Yes (self,mother) Hx Family HEENT Disorders: No Hx Family Autoimmune Disorders: No Internal Medicine - H&P: Meds BuPROPion SR (12 HR) [Wellbutrin SR] 100 mg PO BID 07/29/15 [History] Citalopram Hydrobromide [Celexa] 20 mg PO DAILY 07/29/15 [History] Tamsulosin [Flomax] 0.4 mg PO DAILY 07/29/15 [History] Tizanidine HCl [Zanaflex] 4 mg PO BID 07/29/15 [History] Ipratropium/Albuterol Neb [Duoneb] 3 ml IH Q6HR 02/17/16 [History] Losartan/Hydrochlorothiazide [Hyzaar 100-12.5 Tablet] 0.5 tab PO DAILY 02/17/16 [History] Gabapentin [Neurontin] 300 mg PO QID 10/11/16 [History] Carvedilol [Coreg] 6.25 mg PO BIDWM tablet 04/04/17 [Rx] HYDROcodone/Acet 7.5/325 mg [[place] 7.5-325 mg] 1 tab PO Q6H PRN 06/22/17 [History] Omeprazole [PriLOSEC] 40 mg PO DAILY 06/22/17 [History] Albuterol Sulfate [Albuterol Inhaler] 2 puff IH Q4H PRN 06/20/18 [History] Cetirizine HCl 10 mg PO DAILY 06/20/18 [History] Roflumilast [Daliresp] 500 mcg PO DAILY 06/20/18 [History] Simvastatin [Zocor] 40 mg PO HS 06/20/18 [History] Tiotropium Br/Olodaterol HCl [Stiolto Respimat Inhal [place]] 2 puff IH DAILY 06/20/18 [History] predniSONE [PredniSONE] 10 mg PO AD 06/20/18 [History] Aspirin Enteric Coated [Aspirin EC] 81 mg PO DAILY #30 tablet. 06/22/18 [Rx] Clopidogrel [Plavix] 75 mg PO DAILY #30 tablet 06/22/18 [Rx] Isosorbide MONOnitrate (24 HR) [Imdur] 30 mg PO DAILY #30 tab.er.24h 06/22/18 [Rx] Allergy/AdvReac Type Severity Reaction Status Date / Time morphine Allergy Anaphylaxis Verified 06/20/18 22:19 - Constitutional Constitutional: fatigue, fever(s), no chills, no night sweats - EENT Eyes: no blurry vision, no change in vision Ears: no ear pain, no tinnitus Nose, mouth and throat: no nasal congestion, no sinus pressure, no sore throat - Cardiovascular Cardiovascular ROS IM: dyspnea, dyspnea on exertion, no chest pain, no diaphoresis, no orthopnea, no paroxysmal nocturnal dyspnea, no syncope - Respiratory Respiratory: cough, dyspnea, dyspnea on exertion, wheezing, chest congestion, change in phlegm color, no hemoptysis, no excessive phlegm production, no pain with cough - Gastrointestinal Gastrointestinal: no abdominal pain, no diarrhea, no hematemesis, no hematochezia, no melena, no nausea, no vomiting - Genitourinary Genitourinary ROS male: no dysuria, no flank pain, no hematuria - Musculoskeletal Musculoskeletal ROS IM: no arthralgias, no back pain - Integumentary Integumentary IM: no rash, no jaundice - Neurological Neurological ROS: no dizziness, no focal weakness, no frequent falls, no headache(s) - Psychiatric Psychiatric: no anxiety, no depression - Endocrine Endocrine IM: no cold intolerance, no heat intolerance, no polydipsia, no polyuria - Allergic/Immunologic Allergic/Immunologic: wheezing, GI upset with certain foods - Constitutional Vitals: Temp Pulse Resp BP Pulse Ox 98.5 F 94 18 131/85 99 08/02/18 18:48 08/02/18 18:48 08/02/18 18:48 08/02/18 18:48 08/02/18 18:48 General appearance: Present: cooperative, A&O X 3, pleasant, answers questions a ppropriately Exam: chest pain free; mild respiratory distress from COPD and pneumonia - Head Head exam: Present: atraumatic, normal inspection - Eye Eye exam: Present: EOMI, PERRL. Absent: scleral icterus Pupils: Present: normal accommodation - ENT ENT exam: Present: mucous membranes dry, normal exam, normal oropharynx - Neck Neck exam general surgery: Present: full ROM, supple, trachea midline. Absent: tenderness, nuchal rigidity, thyromegaly - Respiratory Respiratory exam: Present: decreased breath sounds, prolonged expiratory phase, rales, respiratory distress (mild), wheezes, tachypnea. Absent: chest wall tenderness, rhonchi - Cardiovascular Cardiovascular exam: Present: distant heart sounds, RRR, +S1, +S2. Absent: diastolic murmur, systolic murmur - GI/Abdominal GI/Abdominal exam: Present: normal bowel sounds, soft, no peritoneal signs. Absent: guarding, hepatomegaly, mass, rebound, splenomegaly, tenderness - Extremities Exam Extremities exam: Present: full ROM, warm, radial pulses palpable and symmetrical. Absent: calf tenderness, joint swelling, pedal edema, tenderness - Back Exam Back exam: Absent: CVA tenderness (L), CVA tenderness (R) - Neurological Exam Neurological exam: Present: alert, CN II-XII intact, oriented X3, no focal deficits, strengths equal and symetr throughout - Psychiatric Psychiatric exam: Present: normal affect, normal mood - Skin Skin exam: Present: dry, intact, warm Internal Med - H&P Results - Labs Labs: Cardiac Enzymes 08/02/18 Range/Units 19:16 Troponin I < 0.03 (< 0.04) ng/mL I reviewed his labs from [place] and include the following: WBC 13.3 Hemoglobin 13.2 Hematocrit 40.7 Platelets 225 PT 13.5 INR 1.2 PTT 30.7 D-dimer 1500 Sodium 138 Potassium 3.1 Chloride 100 Carbon dioxide 31 BUN 15 Creatinine 0.81 Troponin 0.05, repeat less than 0.03 - EKG Data -: EKG Interpreted by Myself - EKG Data Prior EKG available for review: yes When compared to previous EKG: there is no significant change EKG comments: 08/02/18 20:53 RBBB, no acute change compared to prior EKG -- reviewed with Dr. Talbert - Diagnostic Studies CT scan - chest Status: image reviewed by me (BLL pneumonia) - Assessment and Plan (1) HCAP (healthcare-associated pneumonia) Current Visit: Yes Status: Acute Assessment and plan: 1. Blood cultures obtained at [place]. 2. Will order Sputum cultures. 3. Will treat for HCAP given recent hospital stay and CT findings. 4. Continue oxygen support, scheduled and PRN aerosols. (2) Acute and chronic respiratory failure with hypoxia Current Visit: Yes Status: Acute Assessment and plan: 1. Treatment as above. 2. Will add IV steroids and monitor closely. 3. If he decompensates, will proceed with non-invasive respiratory support and, if necessary invasive support. (3) Elevated troponin Current Visit: Yes Status: Acute Assessment and plan: 1. Will trend troponins and EKG's. 2. STAT ECHO per cardiology. 3. Cardiology consulted. 4. Patient received Lovenox at [place]. Will hold off on further anti- coagulation unless troponins rise -- as discussed with Dr. Talbert. 5. Continue home meds as appropriate once verified. 6. Patient remains chest pain free. (4) Coronary artery disease Current Visit: Yes Status: Chronic Assessment and plan: 1. Work up and care as above. 2. Patient had C about one month ago during last admission here. I reviewed his recent [facility] report and records. No intervention performed. 3. Further treatment and work-up as indicated and advised by cardiology. Qualifiers: Coronary Disease-Associated Artery/Lesion type: [place] artery [place] vs. transplanted heart: [place] heart Associated angina: without angina Qualified Code(s): I25.10 - Atherosclerotic heart disease of [place] coronary artery without angina pectoris (5) DVT prophylaxis Current Visit: Yes Status: Acute Assessment and plan: 1. Heparin SQ ordered to stat tomorrow morning, unless he warrants full anti- coagulation for ACS treatment.
[2018-08-02] MEDS ORDERED: traZODone 50 MG TABLET PO PRN (21:01)
[2018-08-02] MEDS ORDERED: Nitroglycerin 0.4 MG TAB.SUBL SL PRN (21:49)
[2018-08-02] MEDS: Nitroglycerin 0.4 MG TAB.SUBL SL SCH ×2 (21:50→21:51)
[2018-08-02] MEDS ORDERED: Ipratropium/Albuterol Neb 3 ML IH SCH (22:00)
[2018-08-02] MEDS: 0.9 % Sodium Chloride w KCl 20 MEQ/1,000 ML MLS IVC SCH (22:01)
[2018-08-03] MEDS ORDERED: methylPREDNISolone 125 MG/2 ML VIAL IVP SCH
[2018-08-03] MEDS ORDERED: *HR* LORazepam 2 MG/ML VIAL IVP ONE ×2 (02:11→20:24)
[2018-08-03 02:16] LABS: Alanine Aminotransferase 7 Units/L (7-52); Albumin 3.7 g/dL (3.5-5.7); Albumin/Globulin Ratio 1.2 (1.1-2.2); Alkaline Phosphatase 80 Units/L (34-104); Aspartate Amino Transferase 12 Units/L (13-39); BUN/Creatinine Ratio 15 (6-26); Bilirubin,Total 0.6 mg/dL (0.3-1.0); Blood Urea Nitrogen 12 mg/dL (8-23); Calcium 9.5 mg/dL (8.6-10.3); Carbon Dioxide 28 mEq/L (23-29); Chloride 103 mEq/L (98-107); Chol/HDL Ratio 3.3 (0-4.9); Cholesterol 163 mg/dL (< 200); Globulin 3.2 g/dL (2.4-3.5); Glucose 99 mg/dL (70-105); HDL Cholesterol 50 mg/dL (40-59); LDL Cholesterol,Calculated 95 mg/dL (0-99); Magnesium 1.5 mg/dL (1.6-2.6); Osmolality,Calculated 288 (280-300); Potassium 3.7 mEq/L (3.5-5.1); Sodium 139 mEq/L (136-145); Total Protein 6.9 g/dL (6.4-8.9); Triglycerides 88 mg/dL (< 150); eGFR For Non-African Americans > 60 (> 60)
[2018-08-03] MEDS: Levalbuterol Neb 1.25 MG/3 ML IH SCH ×5 (04:07→22:24)
[2018-08-03] MEDS: *HR* Heparin 5,000 UNIT/ML VIAL SQ SCH ×2 (05:17→17:04)
[2018-08-03 05:34] LABS: Basophils % 0.1 %; Eosinophils % 0.1 %; Hematocrit 39.2 % (37.5-50.1); Hemoglobin 12.4 g/dL (12.9-16.9); Immature Granulocytes % 0.6 % (0-4); Lymphocytes # 0.3 K/mcL (0.6-4.6); Lymphocytes % 2.4 %; Mean Corpuscular HGB Conc 31.6 g/dL (31.6-35.5); Mean Corpuscular Hemoglobin 29.7 pg (28.0-33.3); Mean Platelet Volume 10.2 fL (9.4-12.4); Monocytes # 0.2 K/mcL (0.0-1.3); Neutrophils # 10.5 K/mcL (1.6-8.9); Platelet Count 188 K/mcL (140-400); Red Blood Count 4.17 M/mcL (4.19-5.50); Red Cell Distribution Width 13.8 % (11.5-14.5); Segmented Neutrophils % 94.8 %
[2018-08-03 08:41] LABS: ABG Base Excess 5 mEq/L (-2 to 3); ABG HCO3 31 mEq/L (21-27); ABG Oxygen Saturation 86 % (95-98); ABG PCO2 48 mmHg (35-45); ABG PH 7.41 pH Units (7.32-7.45); ABG PO2 52 mmHg (85-104); ABG TCO2 32 mEq/L (20-26)
[2018-08-03] MEDS: Aspirin Enteric Coated 81 MG Tablet PO SCH (08:50)
[2018-08-03] MEDS: Isosorbide MONOnitrate (24 HR) 30 MG TAB.ER.24H PO SCH (08:51)
[2018-08-03] MEDS: MethylPREDNISolone 40 MG/ML VIAL IVP SCH ×2 (08:53→20:06)
[2018-08-03] MEDS ORDERED: Levofloxacin 750 MG/150 ML 750 MG/150 ML BAG IVPB SCH (09:00)
[2018-08-03] MEDS: Piperacillin/Tazobactam 3.375 GM in 0.9 % Sodium Chloride Mini Bag 100 ML IVPB SCH ×2 (09:04→16:51)
[2018-08-03] MEDS: Levofloxacin 750 MG/150 ML 750 MG/150 ML BAG IVPB SCH (10:00)
--- NOTE | 2018-08-03 10:23 | Electrocardiograph Report ---
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
--- NOTE | 2018-08-03 10:28 | Electrocardiograph Report ---
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
[2018-08-03] MEDS ORDERED: Perflutren Lipid Microsphere 1.3 ML in 0.9 % Sodium Chloride 8.7 ML IVP ONE (11:12)
--- NOTE | 2018-08-03 13:03 | Internal Med Progress Note ---
Hospitalist Progress Note - Encounter Date of Encounter: 08/03/18 Time of Encounter: 12:42 - Subjective Interval History: pt feels better, stated that "i am stupid because I chose to smoke." Apparenlty his stopped smoking, - Exam Vitals: Temp Pulse Resp BP Pulse Ox 98.3 F 65 18 126/80 93 08/03/18 07:23 08/03/18 11:53 08/03/18 11:53 08/03/18 11:53 08/03/18 11:53 Exam: Gen: Lyig in bed Heart: s1, S2, RRR lungs: still has wheezing, sounds pretty tight abd: soft, NT/ND LE: no edema - Summary of Assessment and Plan Summary of Assessment and Plan: This is a 73 yom who presented with acute on chronic resp faliure 1) acute on chronic resp faliure: Likley due to COPDE, at this point, we will cont steorid, the abg from this morning does not look that bad. pt does report 50% improvement we will cont breathing treatemnt and IV steroid to see how pt does 2) smoking cessation: given to the pt, pt quit 30 years and I asked him to tell to throw away all the ciggarets. 3)Trop elevation: likely due to the COPD 4) possile PNA: will get procalcitoin on the pt cont zosyn fo rnow 5)disposition: pt reports clincial improement, possible d/c tomorrow or day after if improves more. Time; 35min - Time Spent with Patient Total time spent is greater than 50% in coordination of care (as documented) at patient's floor/unit and/or counseling patient: Internal Medicine: Result - Labs CBC & Chem 7: 08/03/18 04:27 08/03/18 01:48 Labs: Short CBC 08/03/18 Range/Units 04:27 WBC 11.1 (4.3-11.1) K/mcL Hgb 12.4 L (12.9-16.9) g/dL Hct 39.2 (37.5-50.1) % Plt Count 188 (140-400) K/mcL Neutrophils # 10.5 H (1.6-8.9) K/mcL BMP 08/03/18 01:48 Sodium 139 Potassium 3.7 Chloride 103 Carbon Dioxide 28 BUN 12 Creatinine 0.82 Glucose 99 Calcium 9.5 Cardiac Enzymes 08/02/18 08/03/18 08/03/18 Range/Units 19:16 01:48 04:24 Troponin I < 0.03 < 0.03 0.03 (< 0.04) ng/mL 08/03/18 Range/Units 08:23 Troponin I 0.03 (< 0.04) ng/mL Liver Function 08/03/18 Range/Units 01:48 Total Bilirubin 0.6 (0.3-1.0) mg/dL AST 12 L (13-39) Units/L ALT 7 (7-52) Units/L Alkaline Phosphatase 80 (34-104) Units/L Albumin 3.7 (3.5-5.7) g/dL - ABG Interpretation ABG results: ABG ABG pH 7.41 pH Units (7.32-7.45) 08/03/18 08:36 ABG pCO2 48 mmHg (35-45) H 08/03/18 08:36 ABG pO2 52 mmHg (85-104) L 08/03/18 08:36 ABG O2 Saturation 86 % (95-98) L 08/03/18 08:36 Consult Discharge Plan - Plan Referrals: Naresh Trotter MD [Primary Care Provider] -
[2018-08-03] MEDS ORDERED: *HR* LORazepam 0.5 MG TABLET PO PRN (14:22)
--- NOTE | 2018-08-03 14:23 | Cardiology Consult Note ---
<Waldemar Duarte - Last Filed: 08/03/18 14:33> Date of Encounter: 08/03/18 Time of Encounter: 14:18 Assessment and Plan (1) Abnormal EKG Current Visit: Yes Status: Chronic Known RBBB. EKG this admission with sinus tachycardia and RBBB. No significant change from baseline EKG. (2) Elevated troponin Current Visit: Yes Status: Acute Mild elevated troponin at 0.05 and then 0.03x3. Non diagnostic for NSTEMI. Likely demand ischemia in setting of BLL PNA. Pt denies chest pain. Recent [facility] 06/2018 with non-obstructive CAD. Limited TTE shows preserved EF 60%. Prior echo EF 60%, no significant valvular disease. No further cardiac testing recommended. Continue medical management. Asa, statin, bb, and imdur. Smoking cessation. (3) Tobacco abuse Current Visit: Yes Status: Acute Smoking cessation stressed. Declines NRT. (4) Coronary artery disease Current Visit: Yes Status: Chronic H/o AL and prior PCI. Last [facility] 06/21/18- diffuse moderate non-obstructive CAD. Continue medical management and risk factor modification. Qualifiers: Coronary Disease-Associated Artery/Lesion type: [place] artery [place] vs. transplanted heart: [place] heart Associated angina: without angina Qualified Code(s): I25.10 - Atherosclerotic heart disease of [place] coronary artery without angina pectoris Discussion w patient/family: The assessment and plan as outlined above was discussed with the patient and/or family members who expressed understanding and agreement. All questions were answered. Thank you for involving us in the care of your patient. Please call with any questions. History of Present Illness Consult date: 08/03/18 Requesting physician: Suzie Rogers Consult reason: Elevated troponin, abnormal EKG Chief complaint: SOB for three days History of present illness: Mr. Andrews is a 73 year old male with history of CAD s/p PCI and recent AL, AAA, tobacco abuse, hx of renal cancer s/p partial nephrectomy who presents in transfer from [place] [facility] for SOB and abnormal EKG and elevated troponin at 0.05. He was transferred to [facility] for further evaluation. EKG reviewed by interventional cardiology and thought to be unchanged, he has RBBB that was not new. CTA of the chest showed bilateral LL PNA. He denies chest pain or palpitations. Denies orthopnea, PND, or edema. Unfortunately he continues to smoke 1/2 pack a day. Prior CV testing: Nuclear stress test 06/23/17: Gated 71%. Medium sized, moderate intensity, fixed inferior and inferior septal defect possibly due to a prior infarct. Perfusion imaging was negative for ischemia. [facility] 06/2018- Moderate non obstuctive CAD. patent stents. Past Med Surg Social Fam HX - Past Medical History Medical history: aortic aneurysm, arthritis, asthma, cancer, COPD, coronary artery disease, GERD, hyperlipidemia, hypertension, malignancy, myocardial infarction, renal disease Additional medical history: 4 heart stents, cancer kidney right has had treatment Psychiatric history: anxiety, depression - Past Surgical History Surgical History: angioplasty/stent, orthopedic, other, other Additional surgical history: kidney surgery. 1993 Back surgery on disk - Social History Smoking Status: Current some day smoker Packs per day: 1 Smokeless Tobacco Status: No Alcohol use: none Drug use: none Occupational status: retired - Family History Mother Family Member Ethnicity: Non- Living Status: Hx Family Cardiac Disorders: Yes Father Adopted: Yes Family Member Ethnicity: Non- Living Status: Hx Family Cardiac Disorders: Yes (self, brother,mother) Hx Family Respiratory Disorders: Yes (self, father) Hx Family Cancer: Yes (self,father,brother) Hx Family GI Disorders: Yes (self) Hx Family Endocrine Disorder: No Hx Family Neuromuscular Disorders: No Hx Family Neurologic Disorders: Yes (self,mother) Hx Family HEENT Disorders: No Hx Family Autoimmune Disorders: No Medications and Allergies BuPROPion SR (12 HR) [Wellbutrin SR] 100 mg PO BID 07/29/15 [History] Citalopram Hydrobromide [Celexa] 20 mg PO DAILY 07/29/15 [History] Tamsulosin [Flomax] 0.4 mg PO DAILY 07/29/15 [History] Tizanidine HCl [Zanaflex] 4 mg PO BID 07/29/15 [History] Ipratropium/Albuterol Neb [Duoneb] 3 ml IH Q6HR 02/17/16 [History] Losartan/Hydrochlorothiazide [Hyzaar 100-12.5 Tablet] 0.5 tab PO DAILY 02/17/16 [History] Gabapentin [Neurontin] 300 mg PO TID 10/11/16 [History] Carvedilol [Coreg] 6.25 mg PO BIDWM tablet 04/04/17 [Rx] HYDROcodone/Acet 7.5/325 mg [[place] 7.5-325 mg] 1 tab PO TID PRN 06/22/17 [History] Omeprazole [PriLOSEC] 40 mg PO DAILY 06/22/17 [History] Albuterol Sulfate [Albuterol Inhaler] 2 puff IH Q4H PRN 06/20/18 [History] Cetirizine HCl 10 mg PO DAILY 06/20/18 [History] Roflumilast [Daliresp] 500 mcg PO DAILY 06/20/18 [History] Simvastatin [Zocor] 40 mg PO HS 06/20/18 [History] Tiotropium Br/Olodaterol HCl [Stiolto Respimat Inhal [place]] 2 puff IH DAILY 06/20/18 [History] Aspirin Enteric Coated [Aspirin EC] 81 mg PO DAILY #30 tablet.dr 06/22/18 [Rx] Clopidogrel [Plavix] 75 mg PO DAILY #30 tablet 06/22/18 [Rx] Isosorbide MONOnitrate (24 HR) [Imdur] 30 mg PO DAILY #30 tab.er.24h 06/22/18 [Rx] Diclofenac Epolamine [Flector] 2 each TD DAILY PRN 08/02/18 [History] Diclofenac Sodium [Voltaren] 2 gm TP 2-3XD PRN 08/02/18 [History] Allergy/AdvReac Type Severity Reaction Status Date / Time morphine Allergy Anaphylaxis Verified 08/02/18 22:20 prednisone AdvReac See Verified 08/02/18 22:20 Comments All Systems Review: The remainder of the systems were reviewed and are negative Physical Examination Vital Signs, Last 4 Hours Pulse Resp BP Pulse Ox 08/03/18 11:53 65 18 126/80 93 08/03/18 11:17 22 100 General: Conversant, No Apparent Distress HEENT: Atraumatic, Normocephaly, Mucus Membranes Moist Neck: No JVD, Normal carotid pulses Cardiac: Reg Rate and Rhythm, Normal S1 and S2, No Murmur Lungs: Normal Breath Sounds, Other (No wheezes noted.) Neuro: Alert and responsive, No focal deficits noted Abdomen: Soft, Non-Tender Skin: No rashes noted on visualized skin Musculoskeletal: No Chest Wall Tenderness Extremities: No Clubbing, No Cyanosis, No Edema, Normal Pulses Results 08/03/18 04:27 08/03/18 01:48 Lab Results 08/02/18 08/03/18 08/03/18 19:16 01:48 01:48 WBC Hgb Hct Plt Count Sodium 139 Potassium 3.7 Chloride 103 Carbon Dioxide 28 BUN 12 Creatinine 0.82 Glucose 99 Calcium 9.5 Magnesium 1.5 L Total Bilirubin 0.6 AST 12 L ALT 7 Alkaline Phosphatase 80 Troponin I < 0.03 < 0.03 08/03/18 08/03/18 08/03/18 04:24 04:27 08:23 WBC 11.1 Hgb 12.4 L Hct 39.2 Plt Count 188 Sodium Potassium Chloride Carbon Dioxide BUN Creatinine Glucose Calcium Magnesium Total Bilirubin AST ALT Alkaline Phosphatase Troponin I 0.03 0.03 - Imaging and Cardiology Echo: report reviewed Cardiac cath: report reviewed - EKG Interpretation EKG results cardiology: personally reviewed Consult Discharge Plan - Plan Referrals: Naresh Trotter MD [Primary Care Provider] - <Pernell Talbert A - Last Filed: 08/03/18 16:08> Date of Encounter: 08/03/18 - Attending Attestation I have personally performed a face to face evaluation on this patient. I have reviewed and agree with the documented findings and care plan as documented by the [facility]. History and Exam by me shows: 73-year-old gentleman with history of CAD, current everyday smoker admitted for COPD exacerbation and pneumonia. AAOX3 in NAD at the bedside Hemodynamically stable Cardiopulmonary exam revealed S1, S2, no murmur; diminished breath sounds, mild wheezing Rhythm reviewed - sinus rhythm, right bundle branch block,no acute ST T changes Echo preserved EF, no significant valvular heart disease Impression/plan: CAD-continue aspirin, Plavix, beta wilma, Imdur, statin Urged to quit smoking COPD-being managed by the hospitalist service Pernell Valenzuela MD [facility] Assessment and Plan Discussion w patient/family: The assessment and plan as outlined above was discussed with the patient and/or family members who expressed understanding and agreement. All questions were answered. Thank you for involving us in the care of your patient. Please call with any questions. History of Present Illness History of present illness: Mr. Andrews is a 73 year old male All Systems Review: The remainder of the systems were reviewed and are negative Results 08/03/18 04:27 08/03/18 01:48 Lab Results 08/02/18 08/03/18 08/03/18 19:16 01:48 01:48 WBC Hgb Hct Plt Count Sodium 139 Potassium 3.7 Chloride 103 Carbon Dioxide 28 BUN 12 Creatinine 0.82 Glucose 99 Calcium 9.5 Magnesium 1.5 L Total Bilirubin 0.6 AST 12 L ALT 7 Alkaline Phosphatase 80 Troponin I < 0.03 < 0.03 08/03/18 08/03/18 08/03/18 04:24 04:27 08:23 WBC 11.1 Hgb 12.4 L Hct 39.2 Plt Count 188 Sodium Potassium Chloride Carbon Dioxide BUN Creatinine Glucose Calcium Magnesium Total Bilirubin AST ALT Alkaline Phosphatase Troponin I 0.03 0.03
[2018-08-03] MEDS ORDERED: (Diclofenac Sodium [Voltaren] 2 GM) TP PRN (17:15)
[2018-08-03] MEDS ORDERED: *HR* HYDROcodone/Acet 7.5/325 mg TABLET PO PRN (17:15)
[2018-08-03] MEDS: Loratadine 10 MG TABLET PO SCH (20:05)
[2018-08-03] MEDS: tiZANidine 4 MG TABLET PO SCH (20:05)
[2018-08-03] MEDS: Gabapentin 300 MG CAPSULE PO SCH ×2 (20:05→20:15)
[2018-08-03] MEDS: (Roflumilast [Daliresp] 500 MCG) PO SCH (20:21)
[2018-08-03] MEDS: Fluticasone Propionate Nasal 50 MCG/SPRAY BOTTLE NS SCH (21:12)
[2018-08-03] MEDS: BuPROPion SR (12 HR) 100 MG TABLET PO SCH (21:12)
[2018-08-03] MEDS: 0.9 % Sodium Chloride w KCl 20 MEQ/1,000 ML MLS IVC SCH (22:21)
[2018-08-04] MEDS: Piperacillin/Tazobactam 3.375 GM in 0.9 % Sodium Chloride Mini Bag 100 ML IVPB SCH ×3 (00:37→17:46)
[2018-08-04] MEDS: Levalbuterol Neb 1.25 MG/3 ML IH SCH ×4 (04:18→22:43)
[2018-08-04] MEDS: *HR* Heparin 5,000 UNIT/ML VIAL SQ SCH ×2 (05:21→17:45)
[2018-08-04] MEDS: Isosorbide MONOnitrate (24 HR) 30 MG TAB.ER.24H PO SCH (09:45)
[2018-08-04] MEDS: tiZANidine 4 MG TABLET PO SCH ×2 (09:45→22:03)
[2018-08-04] MEDS: (Roflumilast [Daliresp] 500 MCG) PO SCH (09:46)
[2018-08-04] MEDS: Gabapentin 300 MG CAPSULE PO SCH ×3 (09:46→22:04)
[2018-08-04] MEDS: Loratadine 10 MG TABLET PO SCH (09:46)
[2018-08-04] MEDS: MethylPREDNISolone 40 MG/ML VIAL IVP SCH (09:46)
[2018-08-04] MEDS: Aspirin Enteric Coated 81 MG Tablet PO SCH (09:46)
[2018-08-04] MEDS: Fluticasone Propionate Nasal 50 MCG/SPRAY BOTTLE NS SCH (09:47)
[2018-08-04] MEDS: Levofloxacin 750 MG/150 ML 750 MG/150 ML BAG IVPB SCH (09:50)
[2018-08-04] MEDS ORDERED: *HR* LORazepam 0.5 MG TABLET PO PRN (11:49)
--- NOTE | 2018-08-04 11:52 | Internal Med Progress Note ---
Hospitalist Progress Note - Encounter Date of Encounter: 08/04/18 Time of Encounter: 11:50 - Subjective Interval History: Pt feels OK, no new issues, promised he will quit. - Exam Vitals: Temp Pulse Resp BP Pulse Ox 97.5 F L 88 16 131/72 94 08/04/18 07:21 08/04/18 07:21 08/04/18 09:10 08/04/18 07:21 08/04/18 09:10 Exam: Gen: Lyig in bed Heart: s1, S2, RRR lungs: still has wheezing, much better, not tight anymroe abd: soft, NT/ND LE: no edema - Summary of Assessment and Plan Summary of Assessment and Plan: This is a 73 yom who presented with acute on chronic resp faliure 1) acute on chronic resp faliure: Likley due to COPDE, at this point, we will cont steorid, the abg from this morning does not look that bad. pt does report more im,provement however pt is haveing anxity from the steorid side effects we will swtich to PO prednisone 40 2) smoking cessation: given to the pt, pt quit 30 years and I asked him to tell to throw away all the ciggarets. 3)Trop elevation: likely due to the COPD 4) possile PNA: will get procalcitoin on the pt cont issa pozo rnow 5)disposition: still a bit wheezy, one more day of in pt treamtent and anticipate for dc in AM. Time; 35min - Time Spent with Patient Total time spent is greater than 50% in coordination of care (as documented) at patient's floor/unit and/or counseling patient: Internal Medicine: Result - Labs CBC & Chem 7: 08/03/18 04:27 08/03/18 01:48 - ABG Interpretation ABG results: ABG ABG pH 7.41 pH Units (7.32-7.45) 08/03/18 08:36 ABG pCO2 48 mmHg (35-45) H 08/03/18 08:36 ABG pO2 52 mmHg (85-104) L 08/03/18 08:36 ABG O2 Saturation 86 % (95-98) L 08/03/18 08:36 - Impressions Impressions Echocardiogram Limited Views 08/03/18 19:19 Impressions: Technically challenging even with Definity. Not all LV wall segments are well visualized. LVEF 60%. Left Ventricular Wall Motion: Rest Echo Findings The apex, apical inferior, mid inferior, basal inferior, apical anterior, mid anterior and basal anterior huffman were not visualized. All other wall segments showed normal motion. Findings: Study Quality * Technically challenging due to COPD. ECG Findings * Normal sinus rhythm. Left Ventricle * LVEF 60%. * Definity echo contrast was used. * Grossly normal LV chamber size and wall thickness. Right Ventricle * Normal right ventricular structure and function. Aorta * Not well visualized. Consult Discharge Plan - Plan Referrals: Naresh Trotter MD [Primary Care Provider] -
[2018-08-04] MEDS: BuPROPion SR (12 HR) 100 MG TABLET PO SCH ×2 (12:40→22:04)
[2018-08-04] MEDS ORDERED: Aminoglycoside Consult 1 EACH MC ONE (13:15)
[2018-08-04] MEDS: predniSONE 20 MG TABLET PO SCH (22:03)
[2018-08-05] MEDS: Piperacillin/Tazobactam 3.375 GM in 0.9 % Sodium Chloride Mini Bag 100 ML IVPB SCH ×2 (00:52→11:27)
[2018-08-05] MEDS: Levalbuterol Neb 1.25 MG/3 ML IH SCH ×2 (04:13→10:32)
[2018-08-05] MEDS: *HR* Heparin 5,000 UNIT/ML VIAL SQ SCH (05:14)
[2018-08-05 06:31] LABS: Basophils % 0.2 %; Hematocrit 36.6 % (37.5-50.1); Hemoglobin 11.4 g/dL (12.9-16.9); Immature Granulocytes % 0.6 % (0-4); Lymphocytes # 0.6 K/mcL (0.6-4.6); Lymphocytes % 5.9 %; Mean Corpuscular HGB Conc 31.1 g/dL (31.6-35.5); Mean Corpuscular Hemoglobin 29.5 pg (28.0-33.3); Mean Corpuscular Volume 94.6 fL (83.0-100.0); Monocytes # 0.4 K/mcL (0.0-1.3); Monocytes % 3.9 %; Neutrophils # 8.5 K/mcL (1.6-8.9); Platelet Count 209 K/mcL (140-400); Red Blood Count 3.87 M/mcL (4.19-5.50); Red Cell Distribution Width 13.5 % (11.5-14.5); Segmented Neutrophils % 89.4 %
[2018-08-05 06:46] VITALS: BP 140/82
[2018-08-05 06:50] LABS: Alanine Aminotransferase 7 Units/L (7-52); Albumin 3.3 g/dL (3.5-5.7); Albumin/Globulin Ratio 1.3 (1.1-2.2); Alkaline Phosphatase 58 Units/L (34-104); Aspartate Amino Transferase 11 Units/L (13-39); BUN/Creatinine Ratio 29 (6-26); Bilirubin,Total 0.2 mg/dL (0.3-1.0); Blood Urea Nitrogen 26 mg/dL (8-23); Calcium 9.5 mg/dL (8.6-10.3); Carbon Dioxide 27 mEq/L (23-29); Chloride 107 mEq/L (98-107); Globulin 2.6 g/dL (2.4-3.5); Glucose 120 mg/dL (70-105); Osmolality,Calculated 298 (280-300); Potassium 4.3 mEq/L (3.5-5.1); Sodium 141 mEq/L (136-145); Total Protein 5.9 g/dL (6.4-8.9); eGFR For Non-African Americans > 60 (> 60)
[2018-08-05] MEDS: Loratadine 10 MG TABLET PO SCH (09:01)
[2018-08-05] MEDS: tiZANidine 4 MG TABLET PO SCH (09:01)
[2018-08-05] MEDS: Aspirin Enteric Coated 81 MG Tablet PO SCH (09:01)
[2018-08-05] MEDS: predniSONE 20 MG TABLET PO SCH (09:01)
[2018-08-05] MEDS: Gabapentin 300 MG CAPSULE PO SCH (09:02)
[2018-08-05] MEDS: Isosorbide MONOnitrate (24 HR) 30 MG TAB.ER.24H PO SCH (09:02)
[2018-08-05] MEDS: (Roflumilast [Daliresp] 500 MCG) PO SCH (09:04)
[2018-08-05] MEDS: BuPROPion SR (12 HR) 100 MG TABLET PO SCH (09:06)
[2018-08-05] MEDS: Fluticasone Propionate Nasal 50 MCG/SPRAY BOTTLE NS SCH (09:07)
[2018-08-05] MEDS ORDERED: Piperacillin/Tazobactam 3.375 GM VIAL ONE (11:25)
[2018-08-05] MEDS: Levofloxacin 750 MG/150 ML 750 MG/150 ML BAG IVPB SCH (11:27)
--- NOTE | 2018-08-05 11:36 | Discharge Summary ---
- NOTES TO OUTPATIENT PROVIDER Notes to Outpatient Provider: PCP 2- 5days, NO SMOKING!!! Orders not resulted at time of discharge: Pending orders 08/02/18 20:54 Culture,Sputum with Gram Stain [RM] Stat 08/06/18 04:00 Complete Blood Count [HEME] AM 0400 Comprehensive Metabolic Panel AM 0400 08/07/18 04:00 Complete Blood Count [HEME] AM 0400 Comprehensive Metabolic Panel AM 0400 08/08/18 04:00 Complete Blood Count [HEME] AM 0400 Comprehensive Metabolic Panel AM 0400 08/09/18 04:00 Complete Blood Count [HEME] AM 0400 Comprehensive Metabolic Panel AM 0400 Date of Encounter: 08/05/18 Time of Encounter: 11:35 - Discharge Diagnosis (1) Acute and chronic respiratory failure with hypoxia Priority: Primary Status: Acute Hospital course: Mr. Andrews is a 73 year old male who presents in transfer from [facility]. He presented there with complaints of shortness of breath, wheezing, nonproductive cough, and fatigue. Initial workup revealed patient to have a positive troponin, abnormal EKG, and elevated d-dimer. CT angiogram of his chest was performed, which was negative for PE, but he did have evidence of multifocal pneumonia. He received antibiotics, received a dose of Lovenox, and was transferred to hospitalist service with cardiology consultation. Pt was kept in the hospital and pt was givne IV steroid and with that, pt had some aniety and pt got some ativan and pt felt better. Pt's breathing improved, no other issues, pt deemed stable enough to be discharged. I told pt that he can not smoke any more, pt agreed. Time; 35min Discharge discussed with: patient - Time Spent with Patient Total time spent providing and/or coordinating discharge services: - Discharge Medications Prescriptions: New Fluticasone/Salmeterol [Advair 500-50 Diskus] 1 each IH DAILY #1 blst.w.dev Doxycycline 100 mg PO BID #20 capsule predniSONE [Prednisone] 10 mg PO DAILY #60 tab.ds.pk Continued Tamsulosin [Flomax] 0.4 mg PO DAILY BuPROPion SR (12 HR) [Wellbutrin SR] 100 mg PO BID Citalopram Hydrobromide [Celexa] 20 mg PO DAILY Tizanidine HCl [Zanaflex] 4 mg PO BID Ipratropium/Albuterol Neb [Duoneb] 3 ml IH Q6HR Losartan/Hydrochlorothiazide [Hyzaar 100-12.5 Tablet] 0.5 tab PO DAILY Gabapentin [Neurontin] 300 mg PO TID Carvedilol [Coreg] 6.25 mg PO BIDWM tablet Albuterol Sulfate [Albuterol Inhaler] 2 puff IH Q4H PRN PRN Reason: Shortness Of Breath Cetirizine HCl 10 mg PO DAILY Roflumilast [Daliresp] 500 mcg PO DAILY Simvastatin [Zocor] 40 mg PO HS Tiotropium Br/Olodaterol HCl [Stiolto Respimat Inhal [place]] 2 puff IH DAILY Aspirin Enteric Coated [Aspirin EC] 81 mg PO DAILY #30 tablet. Clopidogrel [Plavix] 75 mg PO DAILY #30 tablet Isosorbide MONOnitrate (24 HR) [Imdur] 30 mg PO DAILY #30 tab.er.24h Diclofenac Epolamine [Flector] 2 each TD DAILY PRN PRN Reason: Pain Diclofenac Sodium [Voltaren] 2 gm TP 2-3XD PRN PRN Reason: Pain Fluticasone Propionate Nasal [Flonase] 50 gm DAILY Omeprazole [PriLOSEC] 40 mg PO DAILY HYDROcodone/Acet 7.5/325 mg [[place] 7.5-325 mg] 1 tab PO TID PRN PRN Reason: Pain Home Medications: BuPROPion SR (12 HR) [Wellbutrin SR] 100 mg PO BID 07/29/15 [History] Citalopram Hydrobromide [Celexa] 20 mg PO DAILY 07/29/15 [History] Tamsulosin [Flomax] 0.4 mg PO DAILY 07/29/15 [History] Tizanidine HCl [Zanaflex] 4 mg PO BID 07/29/15 [History] Ipratropium/Albuterol Neb [Duoneb] 3 ml IH Q6HR 02/17/16 [History] Losartan/Hydrochlorothiazide [Hyzaar 100-12.5 Tablet] 0.5 tab PO DAILY 02/17/16 [History] Gabapentin [Neurontin] 300 mg PO TID 10/11/16 [History] Carvedilol [Coreg] 6.25 mg PO BIDWM tablet 04/04/17 [Rx] HYDROcodone/Acet 7.5/325 mg [[place] 7.5-325 mg] 1 tab PO TID PRN 06/22/17 [History] Omeprazole [PriLOSEC] 40 mg PO DAILY 06/22/17 [History] Albuterol Sulfate [Albuterol Inhaler] 2 puff IH Q4H PRN 06/20/18 [History] Cetirizine HCl 10 mg PO DAILY 06/20/18 [History] Roflumilast [Daliresp] 500 mcg PO DAILY 06/20/18 [History] Simvastatin [Zocor] 40 mg PO HS 06/20/18 [History] Tiotropium Br/Olodaterol HCl [Stiolto Respimat Inhal [place]] 2 puff IH DAILY 06/20/18 [History] Aspirin Enteric Coated [Aspirin EC] 81 mg PO DAILY #30 tablet.dr 06/22/18 [Rx] Clopidogrel [Plavix] 75 mg PO DAILY #30 tablet 06/22/18 [Rx] Isosorbide MONOnitrate (24 HR) [Imdur] 30 mg PO DAILY #30 tab.er.24h 06/22/18 [Rx] Diclofenac Epolamine [Flector] 2 each TD DAILY PRN 08/02/18 [History] Diclofenac Sodium [Voltaren] 2 gm TP 2-3XD PRN 08/02/18 [History] Fluticasone Propionate Nasal [Flonase] 50 gm DAILY 08/03/18 [History] Doxycycline 100 mg PO BID #20 capsule 08/05/18 [Rx] Fluticasone/Salmeterol [Advair 500-50 Diskus] 1 each IH DAILY #1 blst.w.dev 08/05/18 [Rx] predniSONE [Prednisone] 10 mg PO DAILY #60 tab.ds.pk 08/05/18 [Rx] Allergies/Adverse Reactions: Allergy/AdvReac Type Severity Reaction Status Date / Time morphine Allergy Anaphylaxis Verified 08/02/18 22:20 prednisone AdvReac See Verified 08/02/18 22:20 Comments Date of admission: 08/02/18 20:55 Primary care physician: Naresh Trotter MD Consults: 08/02/18 20:02 Consult to Physician [CONS] Routine Consulting Provider: A Reason for Consult: troponin elevation; CAD Time Notified: 20:02 Call Completed: Yes - Constitutional Vitals: Temp Pulse Resp BP Pulse Ox 97.4 F L 59 18 140/82 99 08/05/18 07:02 08/05/18 06:42 08/05/18 10:32 08/05/18 06:42 08/05/18 10:32 General appearance: Present: cooperative, A&O X 3, pleasant, answers questions appropriately Exam: Gen: Lyig in bed Heart: s1, S2, RRR lungs: still has wheezing, much better, not tight anymroe abd: soft, NT/ND LE: no edema - Patient Status Disposition: Home, Self-Care - Discharge Instructions Follow Up With: Naresh Trotter MD [Primary Care Provider] -
== END 2018-08-05 13:16 | disposition home or self-care (01) | DRG 193 ==
LOC: 2NENU → SUATTDRO 20:55
PROVIDERS: ADMIT Internal Medicine; ATTEND Internal Medicine

== ENCOUNTER 2020-02-22 12:33 | Inpatient (IN) ==
[2020-02-22] MEDS ORDERED: Acetaminophen 325 MG TABLET PO PRN (17:30)
[2020-02-22] MEDS ORDERED: Mag Hydrox/Al Hydrox/Simeth 30 ML UDC PO PRN (17:30)
[2020-02-22] MEDS ORDERED: Ondansetron ODT 4 MG TAB.RAPDIS SL PRN (17:30)
[2020-02-22] MEDS ORDERED: Naloxone 0.4 MG/ML INJ IVP PRN (17:30)
[2020-02-22] MEDS ORDERED: *HR* Heparin 5,000 UNIT/ML VIAL IVP PRN ×2 (17:41)
[2020-02-22] MEDS: Heparin 25,000UNIT/250ML 1/2NS 25,000 UNIT/250 ML IV.SOLN IVC SCH (17:47)
[2020-02-22] MEDS ORDERED: Ipratropium/Albuterol Neb 3 ML IH PRN (18:17)
[2020-02-22] MEDS ORDERED: Albuterol 2.5 MG/3 ML NEBULIZER IH PRN (18:43)
[2020-02-22] MEDS: Sulfamethoxazole/Trimeth DS 1 EACH TABLET PO SCH (20:07)
[2020-02-22] MEDS: Ipratropium/Albuterol Neb 3 ML IH SCH ×2 (20:31→22:53)
[2020-02-22] MEDS: cefTAZidime 2,000 MG in Water for inj. (sterile) 20 ML IVP SCH (23:30)
[2020-02-23] MEDS ORDERED: D5 IVPB SCH
[2020-02-23] MEDS ORDERED: WATER IVPB SCH
[2020-02-23] MEDS ORDERED: TRIMETH IVPB SCH
[2020-02-23] MEDS ORDERED: SULFAMETHOXAZOLE IVPB SCH
[2020-02-23 02:50] LABS: Basophils # 0.1 K/mcL (0.0-0.2); Basophils % 0.5 %; Eosinophils # 0.2 K/mcL (0.0-0.6); Eosinophils % 1.5 %; Hematocrit 35.7 % (37.5-50.1); Hemoglobin 10.8 g/dL (12.9-16.9); Immature Granulocytes % 0.9 % (0-4); Lymphocytes # 1.8 K/mcL (0.6-4.6); Lymphocytes % 17.3 %; Mean Corpuscular HGB Conc 30.3 g/dL (31.6-35.5); Mean Corpuscular Hemoglobin 26.1 pg (28.0-33.3); Mean Corpuscular Volume 86.2 fL (83.0-100.0); Mean Platelet Volume 9.6 fL (9.4-12.4); Monocytes # 0.8 K/mcL (0.0-1.3); Monocytes % 7.3 %; Neutrophils # 7.5 K/mcL (1.6-8.9); Platelet Count 306 K/mcL (140-400); Red Blood Count 4.14 M/mcL (4.19-5.50); Red Cell Distribution Width 16.8 % (11.5-14.5); Segmented Neutrophils % 72.5 %; White Blood Count 10.4 K/mcL (4.3-11.1)
[2020-02-23 03:10] LABS: Alanine Aminotransferase 6 Units/L (7-52); Albumin 3.3 g/dL (3.5-5.7); Albumin/Globulin Ratio 1.3 (1.1-2.2); Alkaline Phosphatase 84 Units/L (34-104); Aspartate Amino Transferase 10 Units/L (13-39); BUN/Creatinine Ratio 12 (6-26); Bilirubin,Total 0.3 mg/dL (0.3-1.0); Blood Urea Nitrogen 9 mg/dL (8-23); Calcium 8.6 mg/dL (8.6-10.3); Carbon Dioxide 29 mEq/L (23-29); Chloride 106 mEq/L (98-107); Globulin 2.6 g/dL (2.4-3.5); Glucose 78 mg/dL (70-105); Osmolality,Calculated 288 (280-300); Potassium 3.5 mEq/L (3.5-5.1); Sodium 140 mEq/L (136-145); Total Protein 5.9 g/dL (6.4-8.9); eGFR For African Americans > 60 (> 60); eGFR For Non-African Americans > 60 (> 60)
[2020-02-23] MEDS: Ipratropium/Albuterol Neb 3 ML IH SCH ×6 (03:42→23:45)
[2020-02-23] MEDS: Sulfamethoxazole/Trimeth DS 1 EACH TABLET PO SCH ×2 (07:36→19:59)
[2020-02-23] MEDS: cefTAZidime 2,000 MG in Water for inj. (sterile) 20 ML IVP SCH ×2 (07:36→16:00)
[2020-02-23] MEDS: Losartan/HCTZ 50-12.5 TABLET PO SCH ×2 (08:46→10:14)
[2020-02-23] MEDS: Metoprolol XL (24 HR) Succ 25 MG TAB.ER.24H PO SCH (08:46)
[2020-02-23] MEDS: Heparin 25,000UNIT/250ML 1/2NS 25,000 UNIT/250 ML IV.SOLN IVC SCH (12:57)
[2020-02-23] MEDS ORDERED: Simethicone 80 MG TAB.CHEW PO PRN (13:01)
[2020-02-23] MEDS ORDERED: *HR* HYDROcodone/Acet 7.5/325 mg TABLET PO PRN (17:21)
[2020-02-23] MEDS: Gabapentin 300 MG CAPSULE PO SCH (19:59)
[2020-02-24] MEDS: Ipratropium/Albuterol Neb 3 ML IH SCH ×3 (03:54→11:03)
[2020-02-24 05:26] LABS: Basophils # 0.1 K/mcL (0.0-0.2); Basophils % 0.7 %; Eosinophils # 0.2 K/mcL (0.0-0.6); Eosinophils % 1.9 %; Hematocrit 40.8 % (37.5-50.1); Hemoglobin 12.1 g/dL (12.9-16.9); Lymphocytes # 1.8 K/mcL (0.6-4.6); Mean Corpuscular HGB Conc 29.7 g/dL (31.6-35.5); Mean Corpuscular Hemoglobin 25.6 pg (28.0-33.3); Mean Corpuscular Volume 86.4 fL (83.0-100.0); Mean Platelet Volume 9.4 fL (9.4-12.4); Monocytes # 0.9 K/mcL (0.0-1.3); Monocytes % 8.7 %; Platelet Count 319 K/mcL (140-400); Red Blood Count 4.72 M/mcL (4.19-5.50); Red Cell Distribution Width 16.8 % (11.5-14.5); Segmented Neutrophils % 69.7 %
[2020-02-24 05:44] LABS: BUN/Creatinine Ratio 11 (6-26); Blood Urea Nitrogen 11 mg/dL (8-23); Calcium 9.4 mg/dL (8.6-10.3); Carbon Dioxide 32 mEq/L (23-29); Chloride 102 mEq/L (98-107); Glucose 90 mg/dL (70-105); Osmolality,Calculated 287 (280-300); Potassium 4.1 mEq/L (3.5-5.1); Sodium 139 mEq/L (136-145); eGFR For African Americans > 60 (> 60); eGFR For Non-African Americans > 60 (> 60)
[2020-02-24] MEDS: cefTAZidime 2,000 MG in Water for inj. (sterile) 20 ML IVP SCH ×2 (07:33)
[2020-02-24] MEDS: Losartan/HCTZ 50-12.5 TABLET PO SCH (07:35)
[2020-02-24] MEDS: Metoprolol XL (24 HR) Succ 25 MG TAB.ER.24H PO SCH (07:36)
[2020-02-24] MEDS ORDERED: *HR* Midazolam HCl 5 MG/5 ML VIAL IVP ONE ×2 (07:43→09:56)
[2020-02-24] MEDS ORDERED: *HR* EPINEPHrine 1 MG/10 ML SYRINGE INTRATRACH PRN (07:43)
[2020-02-24] MEDS ORDERED: Tetracaine/Benzocaine/Butamben 1 SPRAY AEROSOL MM ONE (07:43)
[2020-02-24] MEDS ORDERED: *HR* FentaNYL (PF) 100 MCG/2 ML VIAL IVP ONE (07:43)
[2020-02-24] MEDS ORDERED: Lidocaine Viscous Oral Soln 15 ML SOLUTION MM ONE (07:43)
[2020-02-24] MEDS ORDERED: 0.9 % Sodium Chloride 1,000 ML IVC SCH (07:45)
[2020-02-24] MEDS ORDERED: NON-FORMULARY MEDICATION 1 EACH EACH (Roflumilast [Daliresp] 500 MCG) PO SCH (09:00)
[2020-02-24] MEDS ORDERED: Lidocaine Viscous Oral Soln 15 ML SOLUTION ONE (09:55)
[2020-02-24] MEDS ORDERED: *HR* FentaNYL (PF) 100 MCG/2 ML VIAL ONE (09:56)
[2020-02-24] MEDS: Gabapentin 300 MG CAPSULE PO SCH (12:10)
[2020-02-24] MEDS: Sulfamethoxazole/Trimeth DS 1 EACH TABLET PO SCH (12:10)
[2020-02-24 12:22] VITALS: BP 131/79
[2020-02-24 16:37] LABS: Appearance of Body Fluid Cloudy (Clear); Volume of Body Fluid 15 mL
[2020-02-25] MEDS ORDERED: Lactobacillus 1 EACH CAP.SPRINK PO SCH (09:00)
== END 2020-02-24 16:16 | disposition home or self-care (01) | DRG 178 ==
LOC: 3ANU → SUATTDRO 14:51
PROVIDERS: ADMIT Family Medicine; ATTEND Family Medicine

== ENCOUNTER 2021-01-08 10:54 | Inpatient (IN) ==
[2021-01-08] MEDS ORDERED: *HR* Heparin 5,000 UNIT/ML VIAL IVP PRN ×2 (14:20)
[2021-01-08] MEDS ORDERED: Ondansetron 4 MG/2 ML VIAL IVP PRN (14:44)
[2021-01-08] MEDS ORDERED: Naloxone 0.4 MG/ML INJ IVP PRN (14:44)
[2021-01-08] MEDS: Ipratropium/Albuterol Neb 3 ML IH SCH ×2 (15:24→20:22)
[2021-01-08] MEDS: MethylPREDNISolone 40 MG/ML VIAL IVP SCH (15:57)
[2021-01-08] MEDS: Heparin 25,000UNIT/250ML 1/2NS 25,000 UNIT/250 ML IV.SOLN IVC SCH (15:57)
[2021-01-08] MEDS: cefTRIAXone 1,000 MG in 0.9 % Sodium Chloride Mini Bag 100 ML IVPB SCH (16:12)
[2021-01-09] MEDS: MethylPREDNISolone 40 MG/ML VIAL IVP SCH ×3 (00:09→17:50)
[2021-01-09] MEDS: Ipratropium/Albuterol Neb 3 ML IH SCH ×4 (03:20→20:13)
[2021-01-09 04:20] LABS: BUN/Creatinine Ratio 27 (6-26); Blood Urea Nitrogen 23 mg/dL (8-23); Calcium 9.1 mg/dL (8.6-10.3); Carbon Dioxide 30 mEq/L (23-29); Chloride 103 mEq/L (98-107); Glucose 112 mg/dL (70-105); Magnesium 1.8 mg/dL (1.6-2.6); Osmolality,Calculated 294 (280-300); Potassium 4.2 mEq/L (3.5-5.1); Sodium 140 mEq/L (136-145); eGFR For African Americans > 60 (> 60); eGFR For Non-African Americans > 60 (> 60)
[2021-01-09 05:07] LABS: Basophils % 0.2 %; Hematocrit 36.8 % (37.5-50.1); Hemoglobin 11.3 g/dL (12.9-16.9); Immature Granulocytes % 0.7 % (0-4); Lymphocytes # 0.5 K/mcL (0.6-4.6); Lymphocytes % 9.6 %; Mean Corpuscular HGB Conc 30.7 g/dL (31.6-35.5); Mean Corpuscular Hemoglobin 28.2 pg (28.0-33.3); Mean Corpuscular Volume 91.8 fL (83.0-100.0); Mean Platelet Volume 10.3 fL (9.4-12.4); Monocytes # 0.4 K/mcL (0.0-1.3); Monocytes % 6.7 %; Neutrophils # 4.4 K/mcL (1.6-8.9); Platelet Count 191 K/mcL (140-400); Red Blood Count 4.01 M/mcL (4.19-5.50); Red Cell Distribution Width 15.1 % (11.5-14.5); Segmented Neutrophils % 82.8 %; White Blood Count 5.3 K/mcL (4.3-11.1)
[2021-01-09] MEDS ORDERED: Azithromycin 500 MG in 0.9 % Sodium Chloride 250 ML IVPB SCH (09:00)
[2021-01-09] MEDS: Aspirin Enteric Coated 81 MG Tablet PO SCH (09:28)
[2021-01-09] MEDS: cefTRIAXone 1,000 MG in 0.9 % Sodium Chloride Mini Bag 100 ML IVPB SCH (09:28)
[2021-01-09] MEDS ORDERED: Perflutren Lipid Microsphere 1.3 ML in 0.9 % Sodium Chloride 8.7 ML IVP PRN (09:28)
[2021-01-09] MEDS: levoFLOXacin 750 MG/150 ML 750 MG/150 ML BAG IVPB SCH (13:20)
[2021-01-09] MEDS ORDERED: *HR* Metoprolol 5 MG/5 ML VIAL IVP ONE (16:18)
[2021-01-09] MEDS: Cefepime HCl 2,000 MG in Water for inj. (sterile) 20 ML IVP SCH (17:50)
[2021-01-09] MEDS ORDERED: *HR* HYDROcodone/Acet 5/325 mg TABLET PO PRN (18:32)
[2021-01-09] MEDS ORDERED: *HR* Metoprolol 5 MG/5 ML VIAL IVP PRN (18:58)
[2021-01-09] MEDS ORDERED: Ipratropium/Albuterol Neb 3 ML IH PRN (20:30)
[2021-01-09] MEDS: Sennosides 8.6 MG TABLET PO SCH (21:01)
[2021-01-09] MEDS: Gabapentin 300 MG CAPSULE PO SCH (21:01)
[2021-01-09] MEDS: Heparin 25,000UNIT/250ML 1/2NS 25,000 UNIT/250 ML IV.SOLN IVC SCH (23:13)
[2021-01-10] MEDS: Cefepime HCl 2,000 MG in Water for inj. (sterile) 20 ML IVP SCH ×3 (00:22→15:47)
[2021-01-10] MEDS: MethylPREDNISolone 40 MG/ML VIAL IVP SCH ×3 (00:22→15:47)
[2021-01-10 04:55] LABS: Hematocrit 36.7 % (37.5-50.1); Hemoglobin 11.7 g/dL (12.9-16.9); Mean Corpuscular HGB Conc 31.9 g/dL (31.6-35.5); Mean Corpuscular Hemoglobin 28.5 pg (28.0-33.3); Mean Corpuscular Volume 89.5 fL (83.0-100.0); Mean Platelet Volume 10.1 fL (9.4-12.4); Platelet Count 197 K/mcL (140-400); White Blood Count 7.4 K/mcL (4.3-11.1)
[2021-01-10 05:16] LABS: BUN/Creatinine Ratio 34 (6-26); Blood Urea Nitrogen 25 mg/dL (8-23); Carbon Dioxide 28 mEq/L (23-29); Chloride 104 mEq/L (98-107); Glucose 108 mg/dL (70-105); Osmolality,Calculated 291 (280-300); Potassium 4.5 mEq/L (3.5-5.1); Sodium 138 mEq/L (136-145); eGFR For African Americans > 60 (> 60); eGFR For Non-African Americans > 60 (> 60)
[2021-01-10 08:04] LABS: Lymphocytes # 0.4 K/mcL (0.6-4.6); Monocytes # 0.2 K/mcL (0.0-1.3); Neutrophils # 6.8 K/mcL (1.6-8.9)
[2021-01-10 08:05] LABS: Platelet Estimate Normal (Normal)
[2021-01-10] MEDS: levoFLOXacin 750 MG/150 ML 750 MG/150 ML BAG IVPB SCH (08:06)
[2021-01-10] MEDS: carvediloL 6.25 MG TABLET PO SCH ×2 (08:07→15:47)
[2021-01-10] MEDS: Gabapentin 300 MG CAPSULE PO SCH ×4 (08:07→21:04)
[2021-01-10] MEDS: Aspirin Enteric Coated 81 MG Tablet PO SCH (08:07)
[2021-01-10] MEDS: Fluticasone Propionate Nasal 50 MCG/SPRAY BOTTLE NS SCH (11:15)
[2021-01-10] MEDS: Simethicone 80 MG TAB.CHEW PO PRN (15:54)
[2021-01-10] MEDS: Heparin 25,000UNIT/250ML 1/2NS 25,000 UNIT/250 ML IV.SOLN IVC SCH (20:16)
[2021-01-10] MEDS ORDERED: *HR* Labetalol 20 MG/4 ML SYRINGE IVP ONE (20:25)
[2021-01-10] MEDS: Sennosides 8.6 MG TABLET PO SCH (21:04)
[2021-01-11] MEDS: MethylPREDNISolone 40 MG/ML VIAL IVP SCH ×3 (00:37→16:19)
[2021-01-11] MEDS: Cefepime HCl 2,000 MG in Water for inj. (sterile) 20 ML IVP SCH ×3 (00:37→16:19)
[2021-01-11 04:09] LABS: Basophils % 0.3 %; Hematocrit 41.1 % (37.5-50.1); Hemoglobin 12.9 g/dL (12.9-16.9); Immature Granulocytes % 0.8 % (0-4); Lymphocytes # 0.8 K/mcL (0.6-4.6); Lymphocytes % 9.6 %; Mean Corpuscular HGB Conc 31.4 g/dL (31.6-35.5); Mean Corpuscular Volume 89.2 fL (83.0-100.0); Mean Platelet Volume 10.2 fL (9.4-12.4); Monocytes # 0.4 K/mcL (0.0-1.3); Neutrophils # 7.4 K/mcL (1.6-8.9); Platelet Count 221 K/mcL (140-400); Red Blood Count 4.61 M/mcL (4.19-5.50); Red Cell Distribution Width 14.9 % (11.5-14.5); Segmented Neutrophils % 85.3 %; White Blood Count 8.7 K/mcL (4.3-11.1)
[2021-01-11 04:26] LABS: BUN/Creatinine Ratio 39 (6-26); Blood Urea Nitrogen 30 mg/dL (8-23); Calcium 8.9 mg/dL (8.6-10.3); Carbon Dioxide 26 mEq/L (23-29); Chloride 104 mEq/L (98-107); Glucose 98 mg/dL (70-105); Osmolality,Calculated 290 (280-300); Potassium 4.8 mEq/L (3.5-5.1); Sodium 137 mEq/L (136-145); eGFR For African Americans > 60 (> 60); eGFR For Non-African Americans > 60 (> 60)
[2021-01-11 04:52] LABS: Platelet Estimate Normal (Normal); Reactive Lymphocytes Present (Not Present)
[2021-01-11] MEDS: Heparin 25,000UNIT/250ML 1/2NS 25,000 UNIT/250 ML IV.SOLN IVC SCH (05:41)
[2021-01-11] MEDS: Aspirin Enteric Coated 81 MG Tablet PO SCH (08:26)
[2021-01-11] MEDS: Gabapentin 300 MG CAPSULE PO SCH ×4 (08:26→21:25)
[2021-01-11] MEDS: carvediloL 6.25 MG TABLET PO SCH ×4 (08:26→16:15)
[2021-01-11] MEDS: levoFLOXacin 750 MG/150 ML 750 MG/150 ML BAG IVPB SCH (08:28)
[2021-01-11] MEDS: Fluticasone Propionate Nasal 50 MCG/SPRAY BOTTLE NS SCH (09:14)
[2021-01-11] MEDS: Simethicone 80 MG TAB.CHEW PO PRN ×3 (09:14→16:52)
[2021-01-11] MEDS: Sennosides 8.6 MG TABLET PO SCH (21:25)
[2021-01-12] MEDS: MethylPREDNISolone 40 MG/ML VIAL IVP SCH ×4 (00:27→23:44)
[2021-01-12] MEDS: Cefepime HCl 2,000 MG in Water for inj. (sterile) 20 ML IVP SCH ×4 (00:27→23:44)
[2021-01-12 06:06] LABS: Basophils % 0.4 %; Hematocrit 41.4 % (37.5-50.1); Hemoglobin 12.8 g/dL (12.9-16.9); Immature Granulocytes % 1.4 % (0-4); Lymphocytes # 0.6 K/mcL (0.6-4.6); Lymphocytes % 7.4 %; Mean Corpuscular HGB Conc 30.9 g/dL (31.6-35.5); Mean Corpuscular Hemoglobin 27.6 pg (28.0-33.3); Mean Corpuscular Volume 89.4 fL (83.0-100.0); Mean Platelet Volume 10.4 fL (9.4-12.4); Monocytes # 0.4 K/mcL (0.0-1.3); Monocytes % 4.2 %; Neutrophils # 7.3 K/mcL (1.6-8.9); Platelet Count 201 K/mcL (140-400); Red Blood Count 4.63 M/mcL (4.19-5.50); Red Cell Distribution Width 14.8 % (11.5-14.5); Segmented Neutrophils % 86.6 %; White Blood Count 8.4 K/mcL (4.3-11.1)
[2021-01-12 06:31] LABS: BUN/Creatinine Ratio 41 (6-26); Blood Urea Nitrogen 31 mg/dL (8-23); Calcium 9.1 mg/dL (8.6-10.3); Carbon Dioxide 32 mEq/L (23-29); Chloride 104 mEq/L (98-107); Glucose 130 mg/dL (70-105); Osmolality,Calculated 294 (280-300); Potassium 4.6 mEq/L (3.5-5.1); Sodium 138 mEq/L (136-145); eGFR For African Americans > 60 (> 60); eGFR For Non-African Americans > 60 (> 60)
[2021-01-12] MEDS: Aspirin Enteric Coated 81 MG Tablet PO SCH (08:37)
[2021-01-12] MEDS: Gabapentin 300 MG CAPSULE PO SCH ×4 (08:37→20:39)
[2021-01-12] MEDS: carvediloL 6.25 MG TABLET PO SCH ×2 (08:37→15:56)
[2021-01-12] MEDS: Fluticasone Propionate Nasal 50 MCG/SPRAY BOTTLE NS SCH (08:39)
[2021-01-12] MEDS: levoFLOXacin 750 MG/150 ML 750 MG/150 ML BAG IVPB SCH (08:39)
[2021-01-12] MEDS ORDERED: lisinopriL 10 MG TABLET PO SCH (09:00)
[2021-01-12] MEDS: amLODIPine 5 MG TABLET PO SCH (09:40)
[2021-01-12] MEDS: lisinopriL 10 MG TABLET PO SCH (09:40)
[2021-01-12] MEDS ORDERED: ISOVUE-370 200 ML INFUS..BTL ONE ×2 (12:42→14:38)
[2021-01-12] MEDS ORDERED: *HR* Heparin 10,000 UNIT/10 ML VIAL ONE (12:42)
[2021-01-12] MEDS ORDERED: Heparin 1,000 UNITS/500 mL 500 ML ONE ×2 (12:42→14:27)
[2021-01-12] MEDS ORDERED: 0.9 % Sodium Chloride 2,000 ML ONE (12:42)
[2021-01-12] MEDS ORDERED: Nitroglycerin 1,000 MCG/5 ML VIAL IV ONE (12:43)
[2021-01-12] MEDS ORDERED: *HR* FentaNYL (PF) 100 MCG/2 ML VIAL ONE (13:14)
[2021-01-12] MEDS ORDERED: *HR* Midazolam HCl 2 MG/2 ML VIAL ONE (13:15)
[2021-01-12] MEDS ORDERED: Ondansetron 4 MG/2 ML VIAL ONE (14:31)
[2021-01-12] MEDS ORDERED: 0.9 % Sodium Chloride 500 ML IVC SCH (16:00)
[2021-01-12] MEDS: Heparin 25,000UNIT/250ML 1/2NS 25,000 UNIT/250 ML IV.SOLN IVC SCH (16:07)
[2021-01-12] MEDS: Sennosides 8.6 MG TABLET PO SCH (20:38)
[2021-01-13 06:32] LABS: Basophils % 0.3 %; Hematocrit 40.2 % (37.5-50.1); Hemoglobin 12.3 g/dL (12.9-16.9); Immature Granulocytes % 1.3 % (0-4); Lymphocytes # 0.6 K/mcL (0.6-4.6); Lymphocytes % 5.7 %; Mean Corpuscular HGB Conc 30.6 g/dL (31.6-35.5); Mean Corpuscular Hemoglobin 27.6 pg (28.0-33.3); Mean Corpuscular Volume 90.1 fL (83.0-100.0); Mean Platelet Volume 10.1 fL (9.4-12.4); Monocytes # 0.5 K/mcL (0.0-1.3); Monocytes % 5.4 %; Neutrophils # 8.5 K/mcL (1.6-8.9); Platelet Count 208 K/mcL (140-400); Red Blood Count 4.46 M/mcL (4.19-5.50); Red Cell Distribution Width 14.6 % (11.5-14.5); Segmented Neutrophils % 87.3 %; White Blood Count 9.7 K/mcL (4.3-11.1)
[2021-01-13 06:56] LABS: BUN/Creatinine Ratio 46 (6-26); Blood Urea Nitrogen 32 mg/dL (8-23); Carbon Dioxide 32 mEq/L (23-29); Chloride 104 mEq/L (98-107); Glucose 133 mg/dL (70-105); Osmolality,Calculated 299 (280-300); Potassium 4.4 mEq/L (3.5-5.1); Sodium 140 mEq/L (136-145); eGFR For African Americans > 60 (> 60); eGFR For Non-African Americans > 60 (> 60)
[2021-01-13] MEDS: carvediloL 6.25 MG TABLET PO SCH (07:48)
[2021-01-13] MEDS: lisinopriL 10 MG TABLET PO SCH (07:48)
[2021-01-13] MEDS: Gabapentin 300 MG CAPSULE PO SCH (07:49)
[2021-01-13] MEDS: MethylPREDNISolone 40 MG/ML VIAL IVP SCH (07:49)
[2021-01-13] MEDS: Cefepime HCl 2,000 MG in Water for inj. (sterile) 20 ML IVP SCH (07:49)
[2021-01-13] MEDS: amLODIPine 5 MG TABLET PO SCH (07:49)
[2021-01-13] MEDS: Aspirin Enteric Coated 81 MG Tablet PO SCH (07:49)
[2021-01-13] MEDS: Fluticasone Propionate Nasal 50 MCG/SPRAY BOTTLE NS SCH (07:51)
[2021-01-13] MEDS: levoFLOXacin 750 MG/150 ML 750 MG/150 ML BAG IVPB SCH (07:51)
[2021-01-13] MEDS: Simethicone 80 MG TAB.CHEW PO PRN (10:28)
[2021-01-13 12:43] VITALS: BP 170/88; PULSE 60; TEMP 97.9; O2SAT 96
[2021-01-14] MEDS ORDERED: *HR* Enoxaparin 40 MG/0.4 ML SYRINGE SQ SCH (06:00)
== END 2021-01-13 12:55 | disposition home or self-care (01) | DRG 246 ==
LOC: 2ANU → SUATTDRO 14:44
PROVIDERS: ADMIT Family Medicine; ATTEND Student in an Organized Health Care Education/Training Program

== ENCOUNTER 2021-08-27 14:56 | Observation (INO) ==
[2021-08-27] MEDS ORDERED: Ondansetron ODT 4 MG TAB.RAPDIS SL PRN (21:19)
[2021-08-27] MEDS ORDERED: *HR* OxyCODONE Immed Rel 5 MG TABLET PO PRN (21:19)
[2021-08-27] MEDS ORDERED: Melatonin 3 MG TABLET PO PRN (21:19)
[2021-08-27] MEDS ORDERED: *HR* HYDROcodone/Acet 5/325 mg TABLET PO PRN (21:19)
[2021-08-27] MEDS ORDERED: Naloxone 0.4 MG/ML INJ IVP PRN (21:19)
[2021-08-27] MEDS ORDERED: Acetaminophen 325 MG TABLET PO PRN (21:19)
[2021-08-27 22:22] LABS: Hematocrit 33.9 % (37.5-50.1); Hemoglobin 10.5 g/dL (12.9-16.9); Immature Granulocytes % 0.4 % (0-4); Lymphocytes # 0.2 K/mcL (0.6-4.6); Mean Corpuscular Volume 90.4 fL (83.0-100.0); Monocytes # 0.2 K/mcL (0.0-1.3); Monocytes % 3.4 %; Neutrophils # 4.6 K/mcL (1.6-8.9); Platelet Count 189 K/mcL (140-400); Red Blood Count 3.75 M/mcL (4.19-5.50); Red Cell Distribution Width 14.4 % (11.5-14.5); Segmented Neutrophils % 92.2 %
[2021-08-27] MEDS: Ipratropium/Albuterol Neb 3 ML IH SCH (23:37)
[2021-08-28] MEDS: MethylPREDNISolone 40 MG/ML VIAL IVP SCH ×2 (00:50→08:41)
[2021-08-28 01:50] LABS: BUN/Creatinine Ratio 18 (6-26); Blood Urea Nitrogen 16 mg/dL (8-23); Calcium 9.1 mg/dL (8.6-10.3); Carbon Dioxide 28 mEq/L (23-29); Chloride 104 mEq/L (98-107); Glucose 114 mg/dL (70-105); Magnesium 1.7 mg/dL (1.6-2.6); Osmolality,Calculated 288 (280-300); Phosphorous 3.3 mg/dL (2.7-4.5); Potassium 4.4 mEq/L (3.5-5.1); Sodium 138 mEq/L (136-145); eGFR For African Americans > 60 (> 60); eGFR For Non-African Americans > 60 (> 60)
[2021-08-28] MEDS: Ipratropium/Albuterol Neb 3 ML IH SCH ×3 (03:36→11:13)
[2021-08-28 06:42] VITALS: BP 149/80; PULSE 86; TEMP 98.3
[2021-08-28] MEDS ORDERED: predniSONE 20 MG TABLET PO SCH (09:00)
[2021-08-28] MEDS ORDERED: Doxycycline 100 MG CAPSULE PO SCH (09:00)
[2021-08-28 09:06] VITALS: O2SAT 97
== END 2021-08-28 13:56 | disposition home or self-care (01) ==
LOC: 3BNU → SUATTDRO 20:58
PROVIDERS: ADMIT Internal Medicine; ATTEND Internal Medicine